=== PATIENT | female | born 2000 | race Caucasian/White ===

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

== ENCOUNTER 2025-04-06 16:30 | Emergency (ER) | payer OTHER ==
--- OUTSIDE RECORDS SUMMARY | 2025-04-06 16:42 | XMS REPORT | Continuity of Care Document ---
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 1{tbl} Take 1 tablet by mouth every 6 (six) hours as needed for Pain (scale 7-10) (Alternate with Ibuprofen) . Indication s: acute pain [facility] ibuprofen 800 mg tablet 08-29 00:00: 00 10-09 00:00 :00 No [id number] 800mg Take 1 tablet by mouth every 8 (eight) hours. [facility] gabapentin 300 mg capsule 08-29 00:00: 00 10-09 00:00 :00 No [id number] 300mg Take 1 capsule by mouth in the morning and 1 capsule at noon and 1 capsule in the evening. [facility] docusate 100 mg capsule 08-29 00:00: 00 10-09 00:00 :00 No [id number] 200mg Take 2 capsules by mouth once daily as needed for Constipati on. [facility] ferrous sulfate 325 mg (65 mg iron) tablet 08-29 00:00: 00 10-09 00:00 :00 No [id number] 325mg Take 1 tablet by mouth in the morning and 1 tablet in the evening. [facility] amoxicillin -pot clavulanate 500 mg (AUGMENTIN) 500-125 mg tablet 08-29 00:00: 09-06 04:59 :00 No [id number] 500mg Take 1 tablet by mouth in the morning and 1 tablet at noon and 1 tablet in the evening. Do all this for 7 days. [facility] gabapentin (NEURONTIN) capsule 300 mg 08-28 18:15: 00 08-29 21:54 :26 No 300mg 300 mg, Oral, TID, First dose (after last modificati on) on Fri08/28/22 at 1215, Until Discontinu ed, Routine [facility] acetaminoph en ADULT (OFIRMEV) injection 1,000 mg 08-28 18:00: 00 08-29 00:40 :00 No 1000mg 1,000 mg, IV Infusion, at 400 mL/hr Administer over 15 Minutes, Q6H, 2 doses, First dose (after last modificati on) on Fri08/28/22 at 1200, Last dose on Fri08/28/22 at 1800, Routine
Indicatio n: Perioperat brittany Patient [facility] gabapentin (NEURONTIN) capsule 300 mg 08-28 18:00: 00 08-28 18:02 :42 No 300mg 300 mg, Oral, TID, First dose on Fri08/28/22 at 1200, Until Discontinu ed, Routine [facility] morpHINE 30 mg/30 mL (fixed dose) [employer] REVIEW SPECIALIST injection 08-28 17:30: 00 08-29 21:54 :26 No Patient Bolus Dose: 1 mg
Lock out Interval: 10 Minutes
Basal Rate: 0 mg/hr
F our Hour Dose Limit: 24 mg
Intr avenous, 30 mL, CONTINUOUS , Starting on Fri08/28/22 at 1130, Until Fri08/29/22 at 1554 [facility] ketorolac (TORADOL) injection 30 mg 08-28 16:00: 00 08-29 09:31 :00 No 30mg 30 mg, Slow IV Push, Q6H FEED, 4 doses, First dose (after last modificati on) on Fri08/28/22 at 1000, Last dose on Fri08/29/22 at 0400, Routine [facility] lactated ringers IV infusion 1,000 mL 08-28 14:15: 00 08-28 15:59 :47 No 1000mL at 125 mL/hr, 1,000 mL, IV Infusion, ONCE, 1 dose, On Fri08/28/22 at 0815, Routine [facility] loperamide (IMODIUM A-D) capsule 4 mg 08-28 13:45: 00 08-28 14:13 :00 No 4mg 4 mg, Oral, ONCE, 1 dose, On Fri08/28/22 at 0745, [facility] ondans[facility] (ZOFRAN (PF)) injection 4 mg 2022-0 08-28 13:30: 00 08-28 14:12 :00 No 4mg 4 mg, Slow IV Push, ONCE, 1 dose, On Fri08/28/22 at 0730, Routine [facility] naloxone (NARCAN) injection 0.4 mg 2022-08-28 13:27: 07 08-29 21:54 :26 No .4mg 0.4 mg, Slow IV Push, PRN - SEE INSTRUCTIO NS, Starting on Fri08/28/22 at 0727, Until Dhara 08/29/22 at 1554, Routine, Analgesia Recovery [facility] nalbuphine (NUBAIN) injection 5 mg 2022-08-28 13:27: 07 08-29 21:54 :26 No 5mg 5 mg, Intravenou s, PRN, 1 dose, Starting on Fri08/28/22 at 0727, Until Dhara 08/29/22 at 1554, Routine, itching [facility] diphenhydrA MINE (BENADRYL) injection 25 mg 2022-0 08-28 13:23: 24 08-29 21:54 :26 No 25mg 25 mg, Slow IV Push, Q6HPRN, Starting on Fri08/28/22 at 0723, Until Dhara 08/29/22 at 1554, Routine, Itching [facility] diphenhydrA MINE (BENADRYL) tablet 25 mg 2022-0 08-28 13:23: 24 08-29 21:54 :26 No 25mg 25 mg, Oral, Q6HPRN, Starting on Fri08/28/22 at 0723, Until Dhara 08/29/22 at 1554, Routine, Sleep, Itching [facility] ondansetron (ZOFRAN (PF)) injection 4 mg 2022-0 08-28 13:23: 24 08-29 21:54 :26 No 4mg 4 mg, Slow IV Push, Q8HPRN, Starting on Fri08/28/22 at 0723, Until Dhara 08/29/22 at 1554, Routine, Nausea and Vomiting (N/V) [facility] bisacodyL (DULCOLAX) suppository 10 mg 08-28 13:23: 23 08-29 21:54 :26 No 10mg 10 mg, Rectal, QDAILYPRN, Starting on Fri08/28/22 at 0723, Until Dhara 08/29/22 at 1554, Routine, Constipati on [facility] simethicone (GAS RELIEF (SIMETHICON E)) chewable tablet 160 mg 08-28 13:23: 23 08-29 21:54 :26 No 160mg 160 mg, Oral, PC+HSPRN, Starting on Fri08/28/22 at 0723, Until Dhara 08/29/22 at 1554, Routine, Gas [facility] docusate (COLACE) capsule 200 mg 08-28 13:23: 23 08-29 21:54 :26 No 200mg 200 mg, Oral, QDAILYPRN, Starting on Fri08/28/22 at 0723, Until Dhara 08/29/22 at 1554, Routine, Constipati on [facility] magnesium hydroxide (MILK OF MAGNESIA) 400 mg/5 mL suspension 30 mL 08-28 13:23: 23 08-29 21:54 :26 No 30mL 30 mL, Oral, QDAILYPRN, Starting on Fri08/28/22 at 0723, Until Dhara 08/29/22 at 1554, Routine, Constipati on [facility] lactated ringers IV infusion 1,000 mL 08-28 13:23: 23 08-28 16:00 :37 No 1000mL at 125 mL/hr, 1,000 mL, IV Infusion, PRN, 1 dose, Starting on Fri08/28/22 at 0723, Until Discontinu ed, Routine [facility] morpHINE PF (DURAMORPH- PF) injection 08-28 13:12: 00 08-28 13:30 :14 No Intravenou s, ONCE INTRA PROCEDURE, Starting on Fri08/28/22 at 0712, Until Fri08/28/22 at 0730, Routine, [facility]-op [facility] azithromyci n (ZITHROMAX) 500 mg in NaCl 0.9% (NS) 250 mL IV piggyback 08-28 13:02: 00 08-28 13:24 :55 No IV Piggyback, CONTINUOUS PRN, Starting on Fri08/28/22 at 0702, Until Fri08/28/22 at 0724, Administer over 60 Minutes, 250 mL, Intra-op [facility] acetaminoph en ADULT (OFIRMEV) injection 08-28 12:55: 00 08-28 13:24 :55 No IV Infusion, Administer over 15 Minutes, ONCE INTRA PROCEDURE, Starting on Fri08/28/22 at 0655, Until Fri08/28/22 at 07, Routine, Intra-op [facility] LR 1000 mL + oxytocin 40 units 40 unit/ 1,000 mL IV Solution 08-28 12:41: 00 08-28 13:24 :55 No IV Infusion, CONTINUOUS PRN, Starting on Fri08/28/22 at 0641, Until Fri08/28/22 at 0724, Routine, Intra-op [facility] midazolam (VERSED) injection 08-28 12:41: 00 08-28 13:24 :55 No IV Push, ONCE INTRA PROCEDURE, Starting on Fri08/28/22 at 0641, Until Fri08/28/22 at 0724, Routine, Intra-op [facility] FENTanyl PF (SUBLIMAZE (PF)) injection 08-28 12:40: 00 08-28 13:24 :55 No Intratheca l, ONCE INTRA PROCEDURE, Starting on Fri08/28/22 at 0640, Until Fri08/28/22 at 0724, Routine, Intra-op [facility] ondansetron (ZOFRAN (PF)) injection 08-28 12:21: 00 08-28 13:24 :55 No Slow IV Push, ONCE INTRA PROCEDURE, Starting on Fri08/28/22 at 0621, Until Fri08/28/22 at 0724, Routine, Intra-op [facility] PHENYLephri ne 1000 mcg/10 mL in 0.9% NaCl syringe 08-28 12:20: 00 08-28 13:24 :55 No Slow IV Push, CONTINUOUS PRN, Starting on Fri08/28/22 at 0620, Until Fri08/28/22 at 0724, Routine, Intra-op [facility] ceFAZolin (ANCEF) 2,000 mg in NaCl 0.9% (NS) 100 mL MINI-BAG 08-28 12:15: 00 08-28 13:32 :07 No 2000mg 2,000 mg, IV Piggyback, Q8H ABX, 3 doses, First dose on Fri08/28/22 at 0615, Last dose on Fri08/28/22 at 2215, Administer over 30 Minutes, 100 mL
Reas on for Anti-Infec tive: Surgical Prophylaxi s
Surgi saad Prophylaxi s: [employer]
Duration of therapy: within 24 hours of surgery [facility] lactated ringers IV infusion 08-28 12:10: 00 08-28 13:24 :55 No IV Infusion, CONTINUOUS PRN, Starting on Fri08/28/22 at 0610, Until Fri08/28/22 at 0724, Routine, Intra-op [facility] lidocaine 2% + epinephrine 1:1000 + fentanyl 50 mcg/mL 08-28 12:08: 00 08-28 13:24 :55 No Epidural, CONTINUOUS PRN, Starting on Fri08/28/22 at 0608, Until Fri08/28/22 at 0724, Routine, Intra-op [facility] acetaminoph en (TYLENOL) tablet 650 mg 08-28 02:27: 25 08-28 13:32 :07 No 650mg 650 mg, Oral, Q6HPRN, Starting on Fri08/27/22 at 2027, Until Fri08/28/22 at 0732, Routine, Pain (scale 4-6) [facility] fentaNYL-ro pivacaine 2 mcg/mL-0.1 % (PF) in NS 200 mL epidural infusion RTU 08-27 22:00: 00 08-28 13:24 :55 No Epidural, CONTINUOUS PRN, Starting on Fri08/27/22 at 1600, Until Discontinu ed, Routine, Intra-op [facility] lidocaine-e pinephrine (XYLOCAINE W/EPINEPHRI NE) 1.5 %-1:200,000 injection 08-27 21:52: 00 08-28 13:24 :55 No Intraderma l, ONCE INTRA PROCEDURE, Starting on Fri08/27/22 at 1552, Until Discontinu ed, Routine, Intra-op [facility] oxytocin (PITOCIN) 30 units in NS 500 mL IV infusion 08-27 10:00: 00 08-28 13:32 :07 No 2mU/min at 2-40 mL/hr, IV Infusion, TITRATE, Starting on Fri08/27/22 at 0400, Until Fri08/28/22 at 0732, JACI [facility] misoprostol (CYTOTEC) quarter-tab let 25 mcg 08-27 06:45: 00 08-27 07:40 :00 No 25ug 25 mcg, Vaginal, ONCE, 1 dose, On Fri08/27/22 at 0045, Routine [facility] butorphanol (STADOL) injection 1 mg 08-27 06:39: 54 08-28 13:32 :07 No 1mg 1 mg, IV Push, Q3HPRN, Starting on Fri08/27/22 at 0039, Until Fri08/28/22 at 0732, Routine, Pain (scale 7-10) [facility] sodium citrate-cit ivanna acid (BICITRA) 500-334 mg/5 mL solution 30 mL 08-27 06:39: 07 08-28 11:30 :00 No 30mL 30 mL, Oral, PRE-PROCED URE ONCE, 1 dose, Starting on Fri08/27/22 at 0039, Until Discontinu ed, Routine, Surgery/Pr ocedure [facility] lactated ringers IV infusion 500 mL 08-27 06:39: 07 08-28 13:32 :07 No 500mL at 999 mL/hr, 500 mL, IV Infusion, PRN - SEE INSTRUCTIO NS, Starting on Fri08/27/22 at 0039, Until Fri08/28/22 at 0732, Routine [facility] D5W-LR IV infusion 1,000 mL 08-27 06:39: 07 08-28 13:32 :07 No 1000mL at 1-125 mL/hr, IV Infusion, TITRATE, Starting on Fri08/27/22 at 003, Until Fri08/28/22 at 0732, Routine [facility] vit/iron fum/folic ac ( 1 + 1 ORAL) 08-27 00:37: 53 Yes Take by mouth. [facility] cephALEXin (KEFLEX) capsule 500 mg 07-16 02:00: 00 07-23 01:59 :00 No 500mg 500 mg, Oral, Q6H ABX, 28 doses, First dose on Fri07/15/22 at 2000, Last dose on Fri07/22/22 at 1400, JACI
Re ason for Anti-Infec tive: Documented Infection< br>Documen muriel Infection Site: Skin / Soft Tissue
Duration of Therapy: 7 days [facility] fluconazole (DIFLUCAN) tablet 200 mg 07-16 01:31: 00 07-16 01:45 :00 No 200mg 200 mg, Oral, ONCE, 1 dose, On Fri07/15/22 at 1945, JACI
Re ason for Anti-Infec tive: Documented Infection< br>Documen muriel Infection Site: Other
O ther site: vaginal
Duration of Therapy: Other (see Comments) [facility] cephALEXin 500 mg capsule 07-16 00:00: 00 07-24 05:59 :00 No [id number] 500mg Take 1 capsule by mouth every 6 (six) hours for 7 days. [facility] vit/iron fum/folic ac ( 1 + 1 ORAL) 07-15 21:29: 54 Yes Take by mouth. [facility] vit/iron fum/folic ac ( 1 + 1 ORAL) 2021-06 16:26: 05 Yes Take by mouth. [facility] azithromyci n 500 mg tablet 2021-06 00:00: 00 06-19 00:00 :00 No [id number] 01 1000mg Take 2 tablets by mouth in the morning. [facility] fluconazole 150 mg tablet 2021-06 00:00: 00 06-01 05:59 :00 No [id number] 150mg Take 1 tablet by mouth once now for 1 dose. [facility] cholecalcif giovany, vitamin D3, (VITAMIN D3 ORAL) 03-04 17:15: 42 03-04 00:00 :00 No Take by mouth. [facility] cholecalcif giovany, vitamin D3, (VITAMIN D3 ORAL) 02-19 11:39: 18 Yes Take by mouth. [facility] iopamidol (ISOVUE 370-500 mL) injection 65 mL 02-15 07:15: 00 02-15 07:15 :00 No [id number] 65mL 65 mL, Intravenou s, ONCE, 1 dose, On Fri02/15/22 at 0215, Routine [facility] vit/iron fum/folic ac ( 1 + 1 ORAL) 02-06 13:04: 58 Yes Take by mouth. [facility] Cetirizine (ZYRTEC) 10 mg capsule 02-06 13:04: 44 02-06 00:00 :00 No Take by mouth. [facility] ondansetron 4 mg disintegrat ing tablet 02-06 00:00: 00 03-04 00:00 :00 No [id number] 4mg Take 1 tablet by mouth every 8 (eight) hours as needed for Nausea and Vomiting (N/V). [facility] pyridoxine, VITAMIN B-6, 25 mg tablet 02-06 00:00: 00 03-04 00:00 :00 No [id number] 25mg Take 1 tablet by mouth in the morning and 1 tablet at noon and 1 tablet in the evening. [facility] doxylamine 25 mg tablet 02-06 00:00: 00 03-04 00:00 :00 No [id number] 25mg Take 1 tablet by mouth at bedtime. [facility] Flexeril 10 mg oral tablet 09-05 20:51: 00 Yes 10 mg, PO, TID, PRN Muscle Spasm, X 10 day, # 30 tab, 0 Refill(s) [place] ibuprofen 600 mg oral tablet 09-05 20:51: 00 Yes 600 mg = 1 tab, PO, Q6H, PRN Pain or Fever, Take with food, X 10 day, # 40 tab, 0 Refill(s) [place] Flexeril 09-05 18:35: 00 No 10 mg, Route: PO, ONCE, Dosing Weight 79.545, kg, Priority: STAT, Start date: 09/05/21 13:35:00 CDT, Stop date: 09/05/21 13:35:00 CDT [place] Tramadol 09-05 18:35: 00 No 50 kg, Priority: STAT, Start date: 09/05/21 13:35:00 CDT, Stop date: 09/05/21 13:35:00 CDT [place] levothyroxi ne 25 mcg tablet - 00:00: 00 02-06 00:00 :00 No [id number] 25ug Take 1 tablet by mouth every morning. Take with water on an empty stomach. Wait at least 15 min before eating or drinking anything else. [facility] Cetirizine (ZYRTEC) 10 mg capsule 2016-06 21:07: 20 Yes Take by mouth. [facility] Cetirizine (ZYRTEC) 10 mg capsule 2016-06 15:07: 20 Yes Take by mouth. [facility] Macrobid 100 mg capsule Take 1 capsule every 12 hours by oral route with meals for 10 days. Macrobid 100 mg capsule Take 1 capsule every 12 hours by oral route with meals for 10 days. No 1capsul e(s) Q12H Macrobid 100 mg capsule Take 1 capsule every 12 hours by oral route with meals for 10 days. [facility] e Immunizations Ordered Immunization Name Filled Immunization Name Date Status Comments Source TDAP 2023-11-28 10:12:[address] [facility] SARS-COV-2 COVID-19 PFIZER VACCINE 2023-11-28 10:12:[address] [facility] TDAP 2023-11-18 14:40:[address] [facility] SARS-COV-2 COVID-19 PFIZER VACCINE 2023-11-18 14:40:[address] [facility] TDAP 2023-08-27 00:00:[address] [facility] SARS-COV-2 COVID-19 PFIZER VACCINE 2023-08-27 00:00:[address] [facility] TDAP 2023-08-22 06:57:[address] [facility] SARS-COV-2 COVID-19 PFIZER VACCINE 2023-08-22 06:57:[address] [facility] TDAP 2023-08-18 12:20:[address] [facility] SARS-COV-2 COVID-19 PFIZER VACCINE 2023-08-18 12:20:[address] [facility] TDAP 2023-07-28 16:40:[address] [facility] SARS-COV-2 COVID-19 PFIZER VACCINE 2023-07-28 16:40:[address] [facility] TDAP 2023-06-23 14:43:[address] [facility] SARS-COV-2 COVID-19 PFIZER VACCINE 2023-06-23 14:43:[address] [facility] TDAP 2023-04-24 20:18:[address] [facility] SARS-COV-2 COVID-19 PFIZER VACCINE 2023-04-24 20:18:[address] [facility] TDAP 2023-04-21 10:23:[address] [facility] SARS-COV-2 COVID-19 PFIZER VACCINE 2023-04-21 10:23:[address] [facility] TDAP 2023-04-17 00:00:[address] [facility] SARS-COV-2 COVID-19 PFIZER VACCINE 2023-04-17 00:00:[address] [facility] TDAP 2023-04-16 00:00:[address] [facility] SARS-COV-2 COVID-19 PFIZER VACCINE 2023-04-16 00:00:[address] [facility] TDAP 2023-04-15 09:40:[address] [facility] SARS-COV-2 COVID-19 PFIZER VACCINE 2023-04-15 09:40:[address] [facility] TDAP 2022-12-27 00:00:[address] [facility] SARS-COV-2 COVID-19 PFIZER VACCINE 2022-12-27 00:00:[address] [facility] TDAP 2022-09-11 00:00:[address] [facility] SARS-COV-2 COVID-19 PFIZER VACCINE 2022-09-11 00:00:[address] [facility] TDAP 2022-07-03 00:00:[address] [facility] TDAP 2022-07-03 00:00:[address] [facility] TDAP 2022-07-03 00:00:[address] [facility] TDAP 2022-07-03 00:00:[address] [facility] TDAP 2022-07-03 00:00:[address] [facility] TDAP 2022-07-03 00:00:[address] [facility] TDAP 2022-07-03 00:00:[address] [facility] TDAP 2022-07-03 00:00:[address] [facility] TDAP 2022-07-03 00:00:[address] [facility] TDAP 2022-07-03 00:00:[address] [facility] TDAP 2022-07-03 00:00:[address] [facility] TDAP 2022-07-03 00:00:[address] [facility] TDAP 2022-07-03 00:00:[address] [facility] TDAP 2022-07-03 00:00:[address] [facility] TDAP 2022-07-03 00:00:[address] [facility] TDAP 2022-07-03 00:00:[address] [facility] TDAP 2022-07-03 00:00:[address] [facility] TDAP 2022-07-03 00:00:[address] [facility] TDAP 2022-07-03 00:00:[address] [facility] TDAP 2022-07-03 00:00:[address] [facility] TDAP 2022-07-03 00:00:[address] [facility] TDAP 2022-07-03 00:00:[address] [facility] TDAP 2022-07-03 00:00:[address] [facility] TDAP 2022-07-03 00:00:[address] [facility] TDAP 2022-07-03 00:00:[address] [facility] TDAP 2022-07-03 00:00:[address] [facility] TDAP 2022-07-03 00:00:[address] [facility] TDAP 2022-07-03 00:00:[address] [facility] TDAP 2022-07-03 00:00:[address] [facility] TDAP 2022-07-03 00:00:[address] [facility] TDAP 2022-07-03 00:00:[address] [facility] TDAP 2022-07-03 00:00:[address] [facility] TDAP 2022-07-03 00:00:[address] [facility] TDAP 2022-07-03 00:00:[address] [facility] COVID-19, mRNA, LNP-S, PF, 30 mcg/0.3 mL dose (Pfizer-BioNTech) COVID-19, mRNA, LNP-S, PF, 30 mcg/0.3 mL dose (Pfizer-BioNTech) 2021-08-10 00:00:00 Completed [facility] SARS-COV-2 COVID-19 PFIZER VACCINE 2021-08-10 00:00:[address] [facility] SARS-COV-2 COVID-19 PFIZER VACCINE 2021-08-10 00:00:[address] [facility] SARS-COV-2 COVID-19 PFIZER VACCINE 2021-08-10 00:00:[address] [facility] SARS-COV-2 COVID-19 PFIZER VACCINE 2021-08-10 00:00:[address] [facility] SARS-COV-2 COVID-19 PFIZER VACCINE 2021-08-10 00:00:[address] [facility] SARS-COV-2 COVID-19 PFIZER VACCINE 2021-08-10 00:00:[address] [facility] SARS-COV-2 COVID-19 PFIZER VACCINE 2021-08-10 00:00:[address] [facility] SARS-COV-2 COVID-19 PFIZER VACCINE 2021-08-10 00:00:[address] [facility] SARS-COV-2 COVID-19 PFIZER VACCINE 2021-08-10 00:00:[address] [facility] SARS-COV-2 COVID-19 PFIZER VACCINE 2021-08-10 00:00:[address] [facility] SARS-COV-2 COVID-19 PFIZER VACCINE 2021-08-10 00:00:[address] [facility] SARS-COV-2 COVID-19 PFIZER VACCINE 2021-08-10 00:00:[address] [facility] SARS-COV-2 COVID-19 PFIZER VACCINE 2021-08-10 00:00:[address] [facility] Vital Signs Vital Name Observation Time Observation Value Comments S ource Systolic blood pressure 2024-09-21 13:50:00 125 mm[Hg] [place] [facility] Diastolic blood pressure 2024-09-21 13:50:00 85 mm[Hg] [place] [facility] Heart rate 2024-09-21 13:50:00 78 [facility] 2024-09-21 13:50:[address] [facility] Respiratory rate 2024-09-21 13:50:00 18 /min [facility] Body height 2024-09-21 13:50:00 165.1 cm [facility] Body weight 2024-09-21 13:50:00 86.501 kg [facility] BMI 2024-09-21 13:50:00 31.73 kg/m2 [facility] Oxygen saturation in Arterial blood by Pulse oximetry 2024-09-21 13:50:00 100 /min [facility] Systolic blood pressure 2024-09-17 15:51:00 120 mm[Hg] [facility] Diastolic blood pressure 2024-09-17 15:51:00 75 mm[Hg] [facility] Heart rate 2024-09-17 15:51:00 80 /min [facility] Body temperature 2024-09-17 15:51:[address] [facility] Respiratory rate 2024-09-17 15:51:00 18 /min [facility] Body height 2024-09-17 15:51:00 165.1 cm [facility] Body weight 2024-09-17 15:51:00 87.544 kg [facility] BMI 2024-09-17 15:51:00 32.12 kg/m2 [facility] Systolic blood pressure 2024-06-07 21:50:00 123 mm[Hg] [facility] Diastolic blood pressure 2024-06-07 21:50:00 79 mm[Hg] [facility] Heart rate 2024-06-07 21:50:00 92 /min [facility] Body temperature 2024-06-07 21:50:[address] [facility] Respiratory rate 2024-06-07 21:50:00 20 /min [facility] Body weight 2024-06-07 21:50:00 82.509 kg [facility] BMI 2024-06-07 21:50:00 31.22 kg/m2 [facility] Oxygen saturation in Arterial blood by Pulse oximetry 2024-06-07 21:50:00 100 /min [facility] Systolic blood pressure 2024-05-12 21:25:00 112 mm[Hg] [facility] Diastolic blood pressure 2024-05-12 21:25:00 73 mm[Hg] [facility] Heart rate 2024-05-12 21:25:00 86 /min [facility] Body temperature 2024-05-12 21:25:[address] [facility] Body height 2024-05-12 21:25:00 162.6 cm [facility] Body weight 2024-05-12 21:25:00 82.101 kg [facility] BMI 2024-05-12 21:25:00 31.07 kg/m2 [facility] Oxygen saturation in Arterial blood by Pulse oximetry 2024-05-12 21:25:00 97 /min [facility] Systolic blood pressure 2023-11-28 15:11:00 120 mm[Hg] [facility] Diastolic blood pressure 2023-11-28 15:11:00 82 mm[Hg] [facility] Heart rate 2023-11-28 15:11:00 81 /min [facility] Body temperature 2023-11-28 15:11:[address] [facility] Respiratory rate 2023-11-28 15:11:00 16 /min [facility] Body height 2023-11-28 15:11:00 162.6 cm [facility] Body weight 2023-11-28 15:11:00 79.379 kg [facility] BMI 2023-11-28 15:11:00 30.04 kg/m2 [facility] Oxygen saturation in Arterial blood by Pulse oximetry 2023-11-28 15:11:00 100 /min [facility] Systolic blood pressure 2023-11-18 20:01:00 108 mm[Hg] [facility] Diastolic blood pressure 2023-11-18 20:01:00 71 mm[Hg] [facility] Heart rate 2023-11-18 20:01:00 86 /min [facility] Body temperature 2023-11-18 20:01:[address] [facility] Respiratory rate 2023-11-18 20:01:00 20 /min [facility] Body height 2023-11-18 20:01:00 162.6 cm [facility] Body weight 2023-11-18 20:01:00 79.788 kg [facility] BMI 2023-11-18 20:01:00 30.19 kg/m2 [facility] Oxygen saturation in Arterial blood by Pulse oximetry 2023-11-18 20:01:00 100 /min [facility] Systolic blood pressure 2023-08-22 15:00:00 96 mm[Hg] [facility] Diastolic blood pressure 2023-08-22 15:00:00 52 mm[Hg] [facility] Heart rate 2023-08-22 15:00:00 79 /min [facility] Respiratory rate 2023-08-22 15:00:00 15 /min [facility] Oxygen saturation in Arterial blood by Pulse oximetry 2023-08-22 15:00:00 98 /min [facility] Body temperature 2023-08-22 12:56:[address] [facility] Body height 2023-08-22 12:56:00 162.6 cm [facility] Body weight 2023-08-22 12:56:00 73.437 kg [facility] BMI 2023-08-22 12:56:00 27.79 kg/m2 [facility] Systolic blood pressure 2023-08-18 18:49:00 119 mm[Hg] [facility] Diastolic blood pressure 2023-08-18 18:49:00 75 mm[Hg] [facility] Heart rate 2023-08-18 18:49:00 71 /min [facility] Body temperature 2023-08-18 18:49:[address] [facility] Respiratory rate 2023-08-18 18:49:00 18 /min [facility] Body weight 2023-08-18 18:49:00 73.437 kg [facility] Oxygen saturation in Arterial blood by Pulse oximetry 2023-08-18 18:49:00 98 /min [facility] Systolic blood pressure 2023-07-28 23:35:53 112 mm[Hg] [facility] Diastolic blood pressure 2023-07-28 23:35:53 68 mm[Hg] [facility] Heart rate 2023-07-28 23:35:53 96 /min [facility] Respiratory rate 2023-07-28 23:35:53 16 /min [facility] Oxygen saturation in Arterial blood by Pulse oximetry 2023-07-28 23:35:53 95 /min [facility] Body temperature 2023-07-28 22:39:[address] [facility] Body height 2023-07-28 22:39:00 162.6 cm [facility] Body weight 2023-07-28 22:39:00 72.576 kg [facility] BMI 2023-07-28 22:39:00 27.46 kg/m2 [facility] Systolic blood pressure 2023-06-23 20:41:00 125 mm[Hg] [facility] Diastolic blood pressure 2023-06-23 20:41:00 77 mm[Hg] [facility] Heart rate 2023-06-23 20:41:00 79 /min [facility] Body temperature 2023-06-23 20:41:[address] [facility] Respiratory rate 2023-06-23 20:41:00 16 /min [facility] Body height 2023-06-23 20:41:00 162.6 cm [facility] Body weight 2023-06-23 20:41:00 77.111 kg [facility] BMI 2023-06-23 20:41:00 29.18 kg/m2 [facility] Oxygen saturation in Arterial blood by Pulse oximetry 2023-06-23 20:41:00 99 /min [facility] Systolic blood pressure 2023-04-25 03:00:00 107 mm[Hg] [facility] Diastolic blood pressure 2023-04-25 03:00:00 73 mm[Hg] [facility] Heart rate 2023-04-25 03:00:00 76 /min [facility] Respiratory rate 2023-04-25 03:00:00 16 /min [facility] Oxygen saturation in Arterial blood by Pulse oximetry 2023-04-25 03:00:00 100 /min [facility] Body temperature 2023-04-25 01:15:[address] [facility] Body height 2023-04-25 01:15:00 162.6 cm [facility] Body weight 2023-04-25 01:15:00 74.844 kg [facility] BMI 2023-04-25 01:15:00 28.32 kg/m2 [facility] Systolic blood pressure 2023-04-21 15:18:00 107 mm[Hg] [facility] Diastolic blood pressure 2023-04-21 15:18:00 66 mm[Hg] [facility] Heart rate 2023-04-21 15:18:00 104 /min [facility] Body temperature 2023-04-21 15:18:[address] [facility] Respiratory rate 2023-04-21 15:18:00 18 /min [facility] Body height 2023-04-21 15:18:00 162.6 cm [facility] Body weight 2023-04-21 15:18:00 74.844 kg [facility] BMI 2023-04-21 15:18:00 28.32 kg/m2 [facility] Oxygen saturation in Arterial blood by Pulse oximetry 2023-04-21 15:18:00 99 /min [facility] Systolic blood pressure 2023-04-15 15:08:00 116 mm[Hg] [place] [facility] Diastolic blood pressure 2023-04-15 15:08:00 72 mm[Hg] [facility] Heart rate 2023-04-15 15:08:00 71 /min [facility] Body temperature 2023-04-15 15:08:[address] [facility] Respiratory rate 2023-04-15 15:08:00 20 /min [facility] Body height 2023-04-15 15:08:00 162.6 cm [facility] Body weight 2023-04-15 15:08:00 74.957 kg [facility] BMI 2023-04-15 15:08:00 28.37 kg/m2 [facility] Oxygen saturation in Arterial blood by Pulse oximetry 2023-04-15 15:08:00 100 /min [facility] Systolic blood pressure 2023-02-18 21:04:00 109 mm[Hg] [facility] Diastolic blood pressure 2023-02-18 21:04:00 73 mm[Hg] [facility] Heart rate 2023-02-18 21:04:00 85 /min [facility] Body temperature 2023-02-18 21:04:[address] [facility] Respiratory rate 2023-02-18 21:04:00 16 /min [facility] Body height 2023-02-18 21:04:00 162.6 cm [facility] Body weight 2023-02-18 21:04:00 74.872 kg [facility] BMI 2023-02-18 21:04:00 28.33 kg/m2 [facility] Oxygen saturation in Arterial blood by Pulse oximetry 2023-02-18 21:04:00 98 /min [facility] Systolic blood pressure 2023-01-29 17:49:00 123 mm[Hg] [facility] Diastolic blood pressure 2023-01-29 17:49:00 74 mm[Hg] [facility] Heart rate 2023-01-29 17:49:00 76 /min [facility] Body temperature 2023-01-29 17:49:[address] [facility] Respiratory rate 2023-01-29 17:49:00 12 /min [facility] Body height 2023-01-29 17:49:00 162.6 cm [facility] Body weight 2023-01-29 17:49:00 73.483 kg [facility] BMI 2023-01-29 17:49:00 27.81 kg/m2 [facility] Oxygen saturation in Arterial blood by Pulse oximetry 2023-01-29 17:49:00 99 /min [facility] Systolic blood pressure 2022-12-26 16:20:00 107 mm[Hg] [facility] Diastolic blood pressure 2022-12-26 16:20:00 57 mm[Hg] [facility] Heart rate 2022-12-26 16:20:00 85 /min [facility] Body temperature 2022-12-26 16:20:[address] [facility] Respiratory rate 2022-12-26 16:20:00 17 /min [facility] Body height 2022-12-26 16:20:00 162.6 cm [facility] Body weight 2022-12-26 16:20:00 72.984 kg [facility] BMI 2022-12-26 16:20:00 27.62 kg/m2 [facility] Oxygen saturation in Arterial blood by Pulse oximetry 2022-12-26 16:20:00 95 /min [facility] Systolic blood pressure 2022-10-09 20:31:00 124 mm[Hg] [facility] Diastolic blood pressure 2022-10-09 20:31:00 78 mm[Hg] [facility] Heart rate 2022-10-09 20:31:00 68 /min [facility] Body temperature 2022-10-09 20:31:[address] [facility] Respiratory rate 2022-10-09 20:31:00 18 /min [facility] Body height 2022-10-09 20:31:00 162.6 cm [facility] Body weight 2022-10-09 20:31:00 74.844 kg [facility] BMI 2022-10-09 20:31:00 28.32 kg/m2 [facility] Systolic blood pressure 2022-09-24 20:48:00 119 mm[Hg] [facility] Diastolic blood pressure 2022-09-24 20:48:00 75 mm[Hg] [facility] Heart rate 2022-09-24 20:48:00 68 /min [facility] Body temperature 2022-09-24 20:48:[address] [facility] Respiratory rate 2022-09-24 20:48:00 18 /min [facility] Body height 2022-09-24 20:48:00 162.6 cm [facility] Body weight 2022-09-24 20:48:00 76.204 kg [facility] BMI 2022-09-24 20:48:00 28.84 kg/m2 [facility] Body temperature 2022-09-04 20:31:[address] [facility] Respiratory rate 2022-09-04 20:31:00 18 /min [facility] Oxygen saturation in Arterial blood by Pulse oximetry 2022-09-04 20:31:00 100 /min [facility] Systolic blood pressure 2022-09-04 17:19:00 127 mm[Hg] [facility] Diastolic blood pressure 2022-09-04 17:19:00 79 mm[Hg] [facility] Heart rate 2022-09-04 09:34:00 65 /min [facility] Body height 2022-08-31 03:07:00 162.6 cm [facility] Body weight 2022-08-31 03:07:00 84.913 kg [facility] BMI 2022-08-31 03:07:00 32.13 kg/m2 [facility] Systolic blood pressure 2022-08-29 18:00:00 114 mm[Hg] [facility] Diastolic blood pressure 2022-08-29 18:00:00 63 mm[Hg] [facility] Body temperature 2022-08-29 18:00:[address] [facility] Heart rate 2022-08-29 13:13:00 81 /min [facility] Respiratory rate 2022-08-29 13:13:00 16 /min [facility] Oxygen saturation in Arterial blood by Pulse oximetry 2022-08-29 13:13:00 96 /min [facility] Body height 2022-08-27 06:57:00 162.6 cm [facility] Body weight 2022-08-27 06:57:00 85.367 kg 188.2lb [facility] BMI 2022-08-27 06:57:00 32.29 kg/m2 [facility] Systolic blood pressure 2022-08-28 14:20:00 112 mm[Hg] [facility] Diastolic blood pressure 2022-08-28 14:20:00 57 mm[Hg] [facility] Heart rate 2022-08-28 14:20:00 94 /min [facility] Respiratory rate 2022-08-28 14:20:00 18 /min [facility] Oxygen saturation in Arterial blood by Pulse oximetry 2022-08-28 14:20:00 97 /min [facility] Body temperature 2022-08-28 13:45:[address] [facility] Body height 2022-08-27 06:57:00 162.6 cm [facility] Body weight 2022-08-27 06:57:00 85.367 kg 188.2lb [facility] BMI 2022-08-27 06:57:00 32.29 kg/m2 [facility] Respiratory rate 2022-08-28 13:09:00 27 /min [facility] Systolic blood pressure 2022-08-21 21:16:00 129 mm[Hg] [facility] Diastolic blood pressure 2022-08-21 21:16:00 83 mm[Hg] [facility] Heart rate 2022-08-21 21:16:00 68 /min [facility] Body temperature 2022-08-21 21:16:[address] [facility] Respiratory rate 2022-08-21 21:16:00 16 /min [facility] Body height 2022-08-21 21:16:00 162.6 cm [facility] Body weight 2022-08-21 21:16:00 84.369 kg [facility] BMI 2022-08-21 21:16:00 31.93 kg/m2 [facility] Systolic blood pressure 2022-08-14 20:54:00 115 mm[Hg] [facility] Diastolic blood pressure 2022-08-14 20:54:00 74 mm[Hg] [facility] Heart rate 2022-08-14 20:54:00 89 /min [facility] Body temperature 2022-08-14 20:54:[address] [facility] Respiratory rate 2022-08-14 20:54:00 17 /min [facility] Body height 2022-08-14 20:54:00 162.6 cm [facility] Body weight 2022-08-14 20:54:00 84.823 kg [facility] BMI 2022-08-14 20:54:00 32.10 kg/m2 [facility] Systolic blood pressure 2022-08-07 21:46:00 110 mm[Hg] [facility] Diastolic blood pressure 2022-08-07 21:46:00 72 mm[Hg] [facility] Heart rate 2022-08-07 21:46:00 62 /min [facility] Body temperature 2022-08-07 21:46:[address] [facility] Respiratory rate 2022-08-07 21:46:00 18 /min [facility] Body height 2022-08-07 21:46:00 162.6 cm [facility] Body weight 2022-08-07 21:46:00 81.92 kg [facility] BMI 2022-08-07 21:46:00 31.00 kg/m2 [facility] Systolic blood pressure 2022-07-31 21:31:00 116 mm[Hg] [facility] Diastolic blood pressure 2022-07-31 21:31:00 74 mm[Hg] [facility] Heart rate 2022-07-31 21:31:00 79 /min [facility] Body temperature 2022-07-31 21:31:[address] [facility] Respiratory rate 2022-07-31 21:31:00 16 /min [facility] Body height 2022-07-31 21:31:00 162.6 cm [facility] Body weight 2022-07-31 21:31:00 83.28 kg [facility] BMI 2022-07-31 21:31:00 31.51 kg/m2 [facility] Systolic blood pressure 2022-07-17 20:15:00 109 mm[Hg] [facility] Diastolic blood pressure 2022-07-17 20:15:00 69 mm[Hg] [facility] Heart rate 2022-07-17 20:15:00 97 /min [facility] Body temperature 2022-07-17 20:15:[address] [facility] Respiratory rate 2022-07-17 20:15:00 18 /min [facility] Body height 2022-07-17 20:15:00 162.6 cm [facility] Body weight 2022-07-17 20:15:00 81.194 kg [facility] BMI 2022-07-17 20:15:00 30.73 kg/m2 [facility] Systolic blood pressure 2022-07-16 02:00:00 106 mm[Hg] [facility] Diastolic blood pressure 2022-07-16 02:00:00 65 mm[Hg] [facility] Heart rate 2022-07-16 02:00:00 83 /min [facility] Oxygen saturation in Arterial blood by Pulse oximetry 2022-07-16 02:00:00 100 /min [facility] Body height 2022-07-16 00:00:00 162.6 cm [facility] Body weight 2022-07-16 00:00:00 80.559 kg [facility] BMI 2022-07-16 00:00:00 30.48 kg/m2 [facility] Body temperature 2022-07-15 23:30:[address] [facility] Respiratory rate 2022-07-15 23:30:00 18 /min [facility] Systolic blood pressure 2022-07-03 17:25:00 119 mm[Hg] [facility] Diastolic blood pressure 2022-07-03 17:25:00 71 mm[Hg] [facility] Heart rate 2022-07-03 17:25:00 98 /min [facility] Body temperature 2022-07-03 17:25:[address] [facility] Respiratory rate 2022-07-03 17:25:00 18 /min [facility] Body height 2022-07-03 17:25:00 162.6 cm [facility] Body weight 2022-07-03 17:25:00 78.926 kg [facility] BMI 2022-07-03 17:25:00 29.87 kg/m2 [facility] Systolic blood pressure 2022-06-19 16:14:00 117 mm[Hg] [facility] Diastolic blood pressure 2022-06-19 16:14:00 74 mm[Hg] [facility] Heart rate 2022-06-19 16:14:00 97 /min [facility] Body temperature 2022-06-19 16:14:[address] [facility] Respiratory rate 2022-06-19 16:14:00 16 /min [facility] Body height 2022-06-19 16:14:00 162.6 cm [facility] Body weight 2022-06-19 16:14:00 77.928 kg [facility] BMI 2022-06-19 16:14:00 29.49 kg/m2 [facility] Oxygen saturation in Arterial blood by Pulse oximetry 2022-06-19 16:14:00 99 /min [facility] Heart rate 2022-06-04 21:50:00 78 /min [facility] Oxygen saturation in Arterial blood by Pulse oximetry 2022-06-04 21:50:00 99 /min [facility] Systolic blood pressure 2022-06-04 20:47:00 132 mm[Hg] [facility] Diastolic blood pressure 2022-06-04 20:47:00 69 mm[Hg] [facility] Body temperature 2022-06-04 20:42:[address] [facility] Respiratory rate 2022-06-04 20:42:00 20 /min [facility] Body weight 2022-06-04 20:27:00 76.204 kg [facility] BMI 2022-06-04 20:27:00 28.84 kg/m2 [facility] Systolic blood pressure 2022-05-29 19:11:00 103 mm[Hg] [facility] Diastolic blood pressure 2022-05-29 19:11:00 68 mm[Hg] [facility] Heart rate 2022-05-29 19:11:00 86 /min [facility] Body temperature 2022-05-29 19:11:[address] [facility] Respiratory rate 2022-05-29 19:11:00 18 /min [facility] Body height 2022-05-29 19:11:00 162.6 cm [facility] Body weight 2022-05-29 19:11:00 75.751 kg [facility] BMI 2022-05-29 19:11:00 28.67 kg/m2 [facility] Systolic blood pressure 2022-05-22 20:46:00 116 mm[Hg] [facility] Diastolic blood pressure 2022-05-22 20:46:00 64 mm[Hg] [facility] Heart rate 2022-05-22 20:46:00 72 /min [facility] Body temperature 2022-05-22 20:46:[address] [facility] Respiratory rate 2022-05-22 20:46:00 16 /min [facility] Body height 2022-05-22 20:46:00 162.6 cm [facility] Body weight 2022-05-22 20:46:00 74.617 kg [facility] BMI 2022-05-22 20:46:00 28.24 kg/m2 [facility] Oxygen saturation in Arterial blood by Pulse oximetry 2022-05-22 20:46:00 99 /min [facility] Systolic blood pressure 2022-04-03 16:11:00 121 mm[Hg] [facility] Diastolic blood pressure 2022-04-03 16:11:00 75 mm[Hg] [facility] Heart rate 2022-04-03 16:11:00 109 /min [facility] Body temperature 2022-04-03 16:11:[address] [facility] Respiratory rate 2022-04-03 16:11:00 16 /min [facility] Body height 2022-04-03 16:11:00 162.6 cm [facility] Body weight 2022-04-03 16:11:00 71.351 kg [facility] BMI 2022-04-03 16:11:00 27.00 kg/m2 [facility] Oxygen saturation in Arterial blood by Pulse oximetry 2022-04-03 16:11:00 100 /min [facility] Systolic blood pressure 2022-03-04 16:09:00 103 mm[Hg] [facility] Diastolic blood pressure 2022-03-04 16:09:00 68 mm[Hg] [facility] Heart rate 2022-03-04 16:09:00 93 /min [facility] Body temperature 2022-03-04 16:09:[address] [facility] Respiratory rate 2022-03-04 16:09:00 18 /min [facility] Body height 2022-03-04 16:09:00 162.6 cm [facility] Body weight 2022-03-04 16:09:00 67.586 kg [facility] BMI 2022-03-04 16:09:00 25.58 kg/m2 [facility] Systolic blood pressure 2022-02-19 16:29:00 120 mm[Hg] [facility] Diastolic blood pressure 2022-02-19 16:29:00 73 mm[Hg] [facility] Heart rate 2022-02-19 16:29:00 78 /min [facility] Body temperature 2022-02-19 16:29:[address] [facility] Respiratory rate 2022-02-19 16:29:00 18 /min [facility] Body height 2022-02-19 16:29:00 165.1 cm [facility] Body weight 2022-02-19 16:29:00 67.586 kg [facility] BMI 2022-02-19 16:29:00 24.79 kg/m2 [facility] Systolic blood pressure 2022-02-15 06:10:00 125 mm[Hg] [facility] Diastolic blood pressure 2022-02-15 06:10:00 64 mm[Hg] [facility] Heart rate 2022-02-15 06:10:00 93 /min [facility] Respiratory rate 2022-02-15 06:10:00 24 /min [facility] Oxygen saturation in Arterial blood by Pulse oximetry 2022-02-15 06:10:00 99 /min [facility] Body temperature 2022-02-15 05:09:[address] [facility] Body height 2022-02-15 05:09:00 165.1 cm [facility] Body weight 2022-02-15 05:09:00 65.772 kg [facility] BMI 2022-02-15 05:09:00 24.13 kg/m2 [facility] Systolic blood pressure 2022-02-05 20:04:00 120 mm[Hg] [facility] Diastolic blood pressure 2022-02-05 20:04:00 75 mm[Hg] [facility] Heart rate 2022-02-05 20:04:00 97 /min [facility] Body temperature 2022-02-05 20:04:[address] [facility] Respiratory rate 2022-02-05 20:04:00 18 /min [facility] Body height 2022-02-05 20:04:00 162.6 cm [facility] Body weight 2022-02-05 20:04:00 67.586 kg [facility] BMI 2022-02-05 20:04:00 25.58 kg/m2 [facility] BP Diastolic 2021-11-02 00:00:00 69 mm[Hg] [facility] Height 2021-11-02 00:00:00 65 [in_i] [facility] BMI (Body Mass Index) 2021-11-02 00:00:00 28 kg/m2 [facility] BP Systolic 2021-11-02 00:00:00 103 mm[Hg] [facility] Body Weight 2021-11-02 00:00:00 168.4 [lb_av] [facility] Height 2021-10-25 00:00:00 65 [in_i] [facility] BMI (Body Mass Index) 2021-10-25 00:00:00 28.4 kg/m2 [facility] ly Practice BP Systolic 2021-10-25 00:00:00 104 mm[Hg] [facility] Body Weight 2021-10-25 00:00:00 170.4 [lb_av] [facility] BP Diastolic 2021-10-25 00:00:00 72 mm[Hg] [facility] BP Diastolic 2021-08-10 00:00:00 81 mm[Hg] [facility] Height 2021-08-10 00:00:00 65 [in_i] [facility] BMI (Body Mass Index) 2021-08-10 00:00:00 28.5 kg/m2 [facility] BP Systolic 2021-08-10 00:00:00 125 mm[Hg] [facility] Body Weight 2021-08-10 00:00:00 171 [lb_av] [facility] Systolic blood pressure 2019-02-12 23:17:00 119 mm[Hg] [facility] Diastolic blood pressure 2019-02-12 23:17:00 80 mm[Hg] [facility] Heart rate 2019-02-12 23:17:00 80 /min [facility] Body temperature 2019-02-12 23:17:[address] [facility] Respiratory rate 2019-02-12 23:17:00 16 /min [facility] Body height 2019-02-12 23:17:00 165.1 cm [facility] Body weight 2019-02-12 23:17:00 76.295 kg [facility] BMI 2019-02-12 23:17:00 27.99 kg/m2 [facility] Oxygen saturation in Arterial blood by Pulse oximetry 2019-02-12 23:17:00 98 /min [facility] Systolic blood pressure 2019-02-12 23:17:00 119 mm[Hg] [facility] Diastolic blood pressure 2019-02-12 23:17:00 80 mm[Hg] [facility] Heart rate 2019-02-12 23:17:00 80 /min [facility] Body temperature 2019-02-12 23:17:[address] [facility] Respiratory rate 2019-02-12 23:17:00 16 /min [facility] Body height 2019-02-12 23:17:00 165.1 cm [facility] Body weight 2019-02-12 23:17:00 76.295 kg [facility] BMI 2019-02-12 23:17:00 27.99 kg/m2 [facility] Oxygen saturation in Arterial blood by Pulse oximetry 2019-02-12 23:17:00 98 /min [facility] Systolic blood pressure 2022-08-29 18:00:00 114 mm[Hg] [facility] Diastolic blood pressure 2022-08-29 18:00:00 63 mm[Hg] [facility] Body temperature 2022-08-29 18:00:[address] [facility] Heart rate 2022-08-29 13:13:00 81 /min [facility] Respiratory rate 2022-08-29 13:13:00 16 /min [facility] Oxygen saturation in Arterial blood by Pulse oximetry 2022-08-29 13:13:00 96 /min [facility] Body height 2022-08-27 06:57:00 162.6 cm [facility] Body weight 2022-08-27 06:57:00 85.367 kg 188.2lb [facility] BMI 2022-08-27 06:57:00 32.29 kg/m2 [facility] Heart Rate 2021-09-05 21:15:00 [facility] [place] Respitory Rate 2021-09-05 21:15:00 [facility] [place] Systolic (mm Hg) 2021-09-05 21:15:00 [facility] [place] Diastolic (mm Hg) 2021-09-05 21:15:00 [facility] [place] Height 2021-09-05 18:04:00 162.56 cm [facility] [place] BMI Calculated 2021-09-05 18:04:00 [facility] Weight 2021-09-05 18:04:00 [facility] Systolic (mm Hg) 2021-09-05 18:04:00 [facility] Diastolic (mm Hg) 2021-09-05 18:04:00 [facility] Heart Rate 2021-09-05 18:04:00 [facility] Respitory Rate 2021-09-05 18:04:00 [facility] Temperature Oral (F) 2021-09-05 18:04:00 98.4 F [facility] Procedures Procedure Date / Time Performed Performing Clinician Source POCT URINALYSIS W/O SPECIFIC GRAVITY 2024-09-21 14:03:[address] [facility] POCT URINALYSIS 2024-05-12 21:31:00 Sarah Rosario [facility] POCT TEST 2024-05-12 00:00:[address] [facility] ED SPLINT APPLICATION 2023-11-28 16:04:[address] [facility] POCT TEST 2023-11-28 15:34:[address] [facility] COVID-19 (ID NOW RAPID TESTING) 2023-08-22 13:48:[address] [facility] COMP. METABOLIC PANEL (35020) 2023-08-22 13:47:[address] [facility] CBC WITH DIFF 2023-08-22 13:47:[address] [facility] RAPID INFLUENZA A/B 2023-08-22 13:47:[address] [facility] CONSENT/REFUSAL FOR DIAGNOSIS AND TREATMENT 2023-08-22 12:49:12 Doctor Unassigned, Hershey [facility] XR CHEST 2 VW 2023-07-28 23:55:53 [facility]X+NA+K+GLU+CA2+ 2023-07-28 23:37:[address] [facility] POCT TEST 2023-07-28 23:21:[address] [facility] URINALYSIS 2023-07-28 23:19:00 Marlin Stephenson [facility] COMP. METABOLIC PANEL (70377) 2023-07-28 23:18:[address] [facility] CBC WITH DIFF 2023-07-28 23:18:00 Sachin [facility] RAPID STREP SCREEN FOR GROUP A 2023-07-28 22:57:[address] [facility] RAPID INFLUENZA A/B 2023-07-28 22:57:[address] [facility] COVID-19 (ID NOW RAPID TESTING) 2023-07-28 22:57:[address] [facility] CONSENT/REFUSAL FOR DIAGNOSIS AND TREATMENT 2023-07-28 22:29:33 Doctor Unassigned, [facility]hey [facility] ASSIGNMENT OF BENEFITS 2023-06-23 22:15:16 Docto r Unassigned, Hershey [facility] POCT TEST 2023-06-23 20:54:[address] [facility] URINALYSIS 2023-06-23 20:53:00 Netta Velazco [facility] CONSENT/REFUSAL FOR DIAGNOSIS AND TREATMENT 2023-06-23 20:32:45 Doctor Unassigned, [facility]hey [facility] URINALYSIS 2023-04-25 01:54:00 Montanez, Napoleon [facility] COMP. METABOLIC PANEL ([id number]) 2023-04-25 01:50:[address] [facility] CBC WITH DIFF 2023-04-25 01:50:00 Napoleon Montanez [facility] RAPID INFLUENZA A/B 2023-04-25 01:50:00 Aishwarya [facility] POCT TEST 2023-04-25 01:50:00 Aishwarya [facility] COVID-19 (ID NOW RAPID TESTING) 2023-04-25 01:50:00 Aishwarya [facility] NOTICE OF PRIVACY PRACTICES 2023-04-25 01:07:36 Doctor Unassigned, [facility]hey [facility] CONSENT/REFUSAL FOR DIAGNOSIS AND TREATMENT 2023-04-25 01:06:22 Doctor Unassigned, [facility]hey [facility] CONSENT/REFUSAL FOR DIAGNOSIS AND TREATMENT 2023-04-21 15:10:29 Doctor Unassigned, Hershey [facility] POCT TEST 2023-02-18 21:14:[address] [facility] ASSIGNMENT OF BENEFITS 2023-02-18 20:55:31 Docto r Unassigned, [facility]hey [facility] POCT URINALYSIS 2023-01-29 17:50:00 Phyllis Ramos Un [facility] HCV ANTIBODY 2022-12-26 17:03:00 Sarah Rosario [facility] HSV 1 AND 2 GLYCOPROTEIN G IGG 2022-12-26 17:03:[address] [facility] SYPHILIS IGG/IGM 2022-12-26 17:03:00 [facility] 2022-12-26 17:02:[address] [facility] CONSENT FOR CONTRACEPTION 2022-10-09 05:01:00 Do ctor Unassigned, [facility] POCT TEST 2022-10-09 00:00:[address] [facility] LIPASE 2022-09-04 09:33:00 [facility] BASIC METABOLIC PANEL (NA, K, CL, CO2, GLUCOSE, BUN, CREATININE, CA) 2022-09-04 09:33:00 Rebecca [facility] CBC WITH DIFF 2022-09-04 09:33:00 [facility] D-DIMER 2022-09-04 09:33:00 Rebecca [facility] PROCALCITONIN 2022-09-04 09:33:[address] [facility] [address] ABDOMEN PELVIS W CONTRAST 2022-09-02 01:30:22 Adum, Prema Valdez [facility] BLOOD CULTURE SCREEN 2022-09-01 23:23:00 Adum, Prema Valdez [facility] BASIC METABOLIC PANEL (NA, K, CL, CO2, GLUCOSE, BUN, CREATININE, CA) 2022-09-01 23:23:00 Adum, Prema Valdez [facility] CBC WITH DIFF 2022-09-01 23:23:00 Adum, Pre[facility] LACTIC ACID WHOLE BLOOD 2022-09-01 23:23:00 Adum, Ivelisse Valdez [facility] XR CHEST 1 VW 2022-09-01 23:09:47 [facility] 2022-08-31 08:04:00 Adum, Prema Valdez [facility] URINE CULTURE 2022-08-31 07:33:00 Adum, Prema Rosa [facility] BLOOD CULTURE SCREEN 2022-08-31 07:02:00 Adum, Prema Valdez [facility] COVID-19 (ID NOW RAPID TESTING) 2022-08-31 04:41:00 Adum, Prema Valdez [facility] LAB ONLY COVID INTERPRETATION 2022-08-31 04:41:00 Adum, Prema Valdez [facility] SGOT (ASPARTATE AMINO TRANSFER) 2022-08-31 03:47:00 Adum, Prema Valdez [facility] CREATININE 2022-08-31 03:47:00 Adum, Prema L [facility] ALANINE AMINO TRANSFERASE(SGPT 2022-08-31 03:47:00 Adum, Prema Valdez [facility] LACTATE DEHYDROGENASE 2022-08-31 03:47:00 Adum, Prema Valdez [facility] URIC ACID 2022-08-31 03:47:00 Adum, Prema Valdez [facility] CBC WITH DIFF 2022-08-31 03:47:00 Adum, Prema Rosa [facility] CONSENT/REFUSAL FOR DIAGNOSIS AND TREATMENT 2022-08-31 02:53:33 Doctor Unassigned, [facility]hey [facility] CONSENT/REFUSAL FOR DIAGNOSIS AND TREATMENT 2022-08-31 02:53:33 Doctor Unassigned, [facility]hey [facility] HOSPITAL ADMISSION 2022-08-30 06:01:00 Doctor Un assigned, [facility]hey [facility] CREATININE 2022-08-29 10:22:00 Randy Osei [facility] CBC WITH DIFF 2022-08-29 10:22:00 Adum, Prema [facility] CBC WITH DIFF 2022-08-29 10:22:00 Adum, Prema [facility] CREATININE 2022-08-29 10:22:00 Randy Osei [facility] CREATININE 2022-08-29 10:22:00 Randy Osei [facility] CBC WITH DIFF 2022-08-29 10:22:00 Adum, Prema Rosa [facility] SECTION 2022-08-28 11:53:00 Adum, [facility]ma [facility] SGOT (ASPARTATE AMINO TRANSFER) 2022-08-28 09:36:00 Adum, Prema Valdez [facility] CREATININE 2022-08-28 09:36:00 Adum, Prema Owens [facility] ALANINE AMINO TRANSFERASE(SGPT 2022-08-28 09:36:00 Adum, Prema Valdez [facility] LACTATE DEHYDROGENASE 2022-08-28 09:36:00 Adum, Prema Valdez [facility] URIC ACID 2022-08-28 09:36:00 Adum, Prema José Miguel [facility] CBC WITH DIFF 2022-08-28 09:36:00 Adum, Premadyana Rosa [facility] URINALYSIS 2022-08-28 09:36:00 Adum, Prema José Miguel [facility] PROTEIN CREAT RATIO URINE RANDOM 2022-08-28 09:36:00 Adum, Prema José Miguel [facility] CBC WITH DIFF 2022-08-28 09:36:00 Adum, Premadyana Rosa [facility] URIC ACID 2022-08-28 09:36:00 Adum, Prema L [facility] CREATININE 2022-08-28 09:36:00 Adum, Prema José Miguel [facility] SGOT (ASPARTATE AMINO TRANSFER) 2022-08-28 09:36:00 Adum, Prema José Miguel [facility] ALANINE AMINO TRANSFERASE(SGPT 2022-08-28 09:36:00 Adum, Prema José Miguel [facility] LACTATE DEHYDROGENASE 2022-08-28 09:36:00 Adum, Prema José Miguel [facility] PROTEIN CREAT RATIO URINE RANDOM 2022-08-28 09:36:00 Adum, Prema José Miguel [facility] URINALYSIS 2022-08-28 09:36:00 Adum, Prema José Miguel [facility] SGOT (ASPARTATE AMINO TRANSFER) 2022-08-28 09:36:00 Adum, Prema José Miguel [facility] CREATININE 2022-08-28 09:36:00 Adum, Prmea José Miguel [facility] ALANINE AMINO TRANSFERASE(SGPT 2022-08-28 09:36:00 Adum, Prema José Miguel [facility] LACTATE DEHYDROGENASE 2022-08-28 09:36:00 Adum, Prema José Miguel [facility] URIC ACID 2022-08-28 09:36:00 Adum, Prema L [facility] CBC WITH DIFF 2022-08-28 09:36:00 Adum, Prema Rosa [facility] URINALYSIS 2022-08-28 09:36:00 Adum, Prema Owens [facility] PROTEIN CREAT RATIO URINE RANDOM 2022-08-28 09:36:00 Adum, Prema Valdez [facility] CENTRAL NEURAXIAL BLOCK 2022-08-27 21:30:[address] [facility] CENTRAL NEURAXIAL BLOCK 2022-08-27 21:30:[address] [facility] CBC WITH DIFF 2022-08-27 07:32:00 Adum, Prema Rosa [facility] HEPATITIS B SURFACE ANTIGEN 2022-08-27 07:32:00 Adum, Prema Valdez [facility] ADC OR SHIVANI ONLY - RPR 2022-08-27 07:32:00 Adum, Kobi Valdez [facility] HIV 1/2 AG-AB WITH REFLEX 2022-08-27 07:32:00 Adum, Kobi Valdez [facility] URINE DRUG (LCMSMS) - COMPREHENSIVE DRUG PANEL 2022-08-27 07:32:00 Adum, Prema Valdez [facility] HEPATITIS B SURFACE ANTIGEN 2022-08-27 07:32:00 Adum, Prema Valdez [facility] ADC OR SHIVANI ONLY - RPR 2022-08-27 07:32:00 Adum, Kobi Valdez [facility] CBC WITH DIFF 2022-08-27 07:32:00 Adum, Prema Rosa [facility] HIV 1/2 AG-AB WITH REFLEX 2022-08-27 07:32:00 Adum, Kobi Valdez [facility] CBC WITH DIFF 2022-08-27 07:32:00 Adum, Prema Rosa [facility] HEPATITIS B SURFACE ANTIGEN 2022-08-27 07:32:00 Adum, Prema Valdez [facility] ADC OR SHIVANI ONLY - RPR 2022-08-27 07:32:00 Adum, Kobi Valdez [facility] HIV 1/2 AG-AB WITH REFLEX 2022-08-27 07:32:00 Adum, Kobi Valdez [facility] HB ABO GROUPING 2022-08-27 07:30:00 Adum, Prema Valdez [facility] HB ABO GROUPING 2022-08-27 07:30:00 Adum, Prema Valdez [facility] HB ABO GROUPING 2022-08-27 07:30:00 Adum, Prema Valdez [facility] HOSPITAL ADMISSION 2022-08-27 06:01:00 Doctor Un assigned, [facility]hey [facility] AUTHORIZATION FOR RELEASE OF PHI 2022-08-27 06:01:00 Doctor Unassigned, [facility]hey [facility] PATIENT FINANCIAL POLICY 2022-08-21 20:51:16 Doctor Unassigned, [facility] PATIENT FINANCIAL POLICY 2022-08-21 20:51:16 Doctor Unassigned, Hershey [facility] POCT URINALYSIS W/O SPECIFIC GRAVITY 2022-08-21 00:00:00 Adum, Prema Valdez [facility] POCT URINALYSIS W/O SPECIFIC GRAVITY 2022-08-21 00:00:00 Adum, Prema Valdez [facility] POCT URINALYSIS W/O SPECIFIC GRAVITY 2022-08-14 00:00:00 Adum, Prema Valdez [facility] POCT URINALYSIS W/O SPECIFIC GRAVITY 2022-08-14 00:00:00 Adum, Prema Valdez [facility] CBC WITH DIFF 2022-08-12 18:14:00 Adum, Prema Valdez [facility] GC & CHLAMYDIA AMPLIFIED ASSAY 2022-08-07 21:56:00 Adum, Prema Valdez [facility] GROUP B STREPTOCOCCUS BY PCR 2022-08-07 21:56:00 Adum, Prema Valdez [facility] DSU PRE-OP 2022-08-07 06:01:00 Doctor Unass igned, [facility] DSU PRE-OP 2022-08-07 06:01:00 Doctor Unass igned, [facility]hey [facility] POCT URINALYSIS W/O SPECIFIC GRAVITY 2022-08-07 00:00:00 Adum, Prema Valdez [facility] POCT URINALYSIS W/O SPECIFIC GRAVITY 2022-08-07 00:00:00 Adum, Prema Valdez [facility] POCT URINALYSIS W/O SPECIFIC GRAVITY 2022-07-31 00:00:00 Adum, Prema Valdez [facility] POCT URINALYSIS W/O SPECIFIC GRAVITY 2022-07-31 00:00:00 Adum, Prema Valdez [facility] POCT URINALYSIS W/O SPECIFIC GRAVITY 2022-07-17 00:00:00 Adum, Prema Valdez [facility] POCT URINALYSIS W/O SPECIFIC GRAVITY 2022-07-17 00:00:00 Adum, Prema Valdez [facility] NON-STRESS TEST 2022-07-16 23:39:[address] [facility] ADC CLC OR LCC ONLY - WET PREP 2022-07-16 00:31:[address] [facility] ADC CLC OR LCC ONLY - WET PREP 2022-07-16 00:31:[address] [facility] GROUP B STREPTOCOCCUS BY PCR 2022-07-16 00:31:[address] [facility] GC & CHLAMYDIA AMPLIFIED ASSAY 2022-07-16 00:31:[address] [facility] ASSIGNMENT OF BENEFITS 2022-07-15 23:21:16 Docto r Unassigned, [facility]hey [facility] ASSIGNMENT OF BENEFITS 2022-07-15 23:21:16 Docto r Unassigned, [facility]hey [facility] CONSENT/REFUSAL FOR DIAGNOSIS AND TREATMENT 2022-07-15 23:18:05 Doctor Unassigned, [facility]hey [facility] CONSENT/REFUSAL FOR DIAGNOSIS AND TREATMENT 2022-07-15 23:18:05 Doctor Unassigned, [facility]hey [facility] AUTHORIZATION FOR RELEASE OF PHI 2022-07-15 06:01:00 Doctor Unassigned, [facility]hey [facility] L&D VISIT (NON-DELIVERED) 2022-07-15 06:01:00 Do ctor Unassigned, [facility]hey [facility] AUTHORIZATION FOR RELEASE OF PHI 2022-07-15 06:01:00 Doctor Unassigned, [facility]hey [facility] L&D VISIT (NON-DELIVERED) 2022-07-15 06:01:00 Do ctor Unassigned, [facility]hey [facility] AUTHORIZATION FOR RELEASE OF PHI 2022-07-15 06:01:00 Doctor Unassigned, Hershey [facility] L&D VISIT (NON-DELIVERED) 2022-07-15 06:01:00 Do ctor Unassigned, [facility]hey [facility] TDAP VACCINE, >11 YRS, IM 2022-07-03 17:26:33 Adum, Kobi Valdez [facility] TDAP VACCINE, >11 YRS, IM 2022-07-03 17:26:33 Adum, Kobi Valdez [facility] POCT URINALYSIS W/O SPECIFIC GRAVITY 2022-07-03 17:26:00 Adum, Prema Valdez [facility] POCT URINALYSIS W/O SPECIFIC GRAVITY 2022-07-03 17:26:00 Adum, Prema Valdez [facility] URINE DRUG (IMMUNOASSAY) - COMPREHENSIVE DRUG SCREEN 2022-06-19 17:02:00 Adum, Prema Valdez [facility] GC & CHLAMYDIA AMPLIFIED ASSAY 2022-06-19 16:18:00 Adum, Prema Valdez [facility] TRICHOMONAS AMPLIFIED ASSAY 2022-06-19 16:18:00 Adum, Prema Valdez [facility] POCT URINALYSIS W/O SPECIFIC GRAVITY 2022-06-19 00:00:00 Adum, Prema Valdez [facility] POCT URINALYSIS W/O SPECIFIC GRAVITY 2022-06-19 00:00:00 Adum, Prema Valdez [facility] CBC WITH DIFF 2022-06-11 15:45:00 Adum, Prema Rosa [facility] GLUCOSE 1 HOUR POST PRANDIAL 2022-06-11 15:45:00 Adum, Prema Valdez [facility] CBC WITH DIFF 2022-06-11 15:45:00 Adum, Prema Rosa [facility] ADC OR SHIVANI ONLY - RPR 2022-06-11 15:45:00 Adum, Kobi Valdez [facility] HIV 1/2 AG-AB WITH REFLEX 2022-06-11 15:45:00 Adum, Kobi Valdez [facility] HB ABO GROUPING 2022-06-11 15:42:00 Adum, Prema Valdez [facility] ASSIGNMENT OF BENEFITS 2022-06-04 20:19:24 Docto r Unassigned, Hershey [facility] ASSIGNMENT OF BENEFITS 2022-06-04 20:19:24 Docto r Unassigned, Hershey [facility] CONSENT/REFUSAL FOR DIAGNOSIS AND TREATMENT 2022-06-04 20:19:00 Doctor Unassigned, [facility]hey [facility] CONSENT/REFUSAL FOR DIAGNOSIS AND TREATMENT 2022-06-04 20:19:00 Doctor Unassigned, [facility]hey [facility] >14 WEEKS US LIMITED 2022-05-29 19:26:57 Adum, Prema Valdez [facility] POCT URINALYSIS W/O SPECIFIC GRAVITY 2022-05-22 00:00:00 Admilo, Prema Valdez [facility] POCT URINALYSIS W/O SPECIFIC GRAVITY 2022-04-03 00:00:[address] [facility] EXTERNAL PROVIDER RECORDS 2022-03-14 05:01:00 Do ctor Unassigned, [facility]hey [facility] POCT URINALYSIS W/O SPECIFIC GRAVITY 2022-03-04 00:00:[address] [facility] POCT URINALYSIS W/O SPECIFIC GRAVITY 2022-02-19 16:40:[address] [facility] XR TIBIA FIBULA 2 VW RIGHT 2022-02-15 06:57:[address] [facility] URINALYSIS 2022-02-15 06:37:00 Karsten Klein [facility] CT TRAUMA THORAX W CONTRAST 2022-02-15 06:25:[address] [facility] CT TRAUMA ABDOMEN PELVIS W CONTRAST 2022-02-15 06:25:[address] [facility] CT TRAUMA HEAD WO CONTRAST 2022-02-15 06:24:[address] [facility] CT TRAUMA CERVICAL SPINE WO CONTRAST 2022-02-15 06:24:[address] [facility] CT TRAUMA THORACIC SPINE WO CONTRAST 2022-02-15 06:24:[address] [facility] CT TRAUMA LUMBAR SPINE WO CONTRAST 2022-02-15 06:24:[address] [facility] HB ABO GROUPING 2022-02-15 05:20:00 [facility] 2022-02-15 05:19:[address] COMP. METABOLIC PANEL ([id number]) 2022-02-15 05:19:[address] [facility] CBC WITH DIFF 2022-02-15 05:19:00 Karsten Klein [facility] PROTHROMBIN TIME / INR 2022-02-15 05:19:[address] [facility] ACTIVATED PARTIAL THRMPLAS JOE 2022-02-15 05:19:[address] [facility] COVID-19 (ID NOW RAPID TESTING) 2022-02-15 05:19:[address] [facility] <14 WEEKS US LIMITED 2022-02-06 18:32:18 Raad [facility] ASSIGNMENT OF BENEFITS 2022-02-05 19:29:44 Docto r Unassigned, [place] [facility] POCT URINALYSIS W/O SPECIFIC GRAVITY 2022-02-05 00:00:00 Raad [facility] Drainage of Abscess 2020-06-23 00:00:00 V illage [facility] POCT RAPID STREP SCREEN FOR GROUP A 2019-02-12 23:19:[address] [facility] ASSIGNMENT OF BENEFITS 2019-02-12 23:05:54 Docto r Unassigned, [place] [facility] SECTION Adum, [facility] SECTION Adum, [facility] Plan of Care Planned Activity Planned Date Details Comments Source Diagnostic Test Pending 2021-11-02 00:00:00 CBC w/ auto diff [code = CBC w/ auto diff] [facility] Diagnostic Test Pending 2021-11-02 00:00:00 CMP, serum or plasma [code = CMP, serum or plasma] [facility] Diagnostic Test Pending 2021-11-02 00:00:00 TSH, serum or plasma [code = TSH, serum or plasma] [facility] Diagnostic Test Pending 2021-11-02 00:00:00 T4, free, serum [code = T4, free, serum] [facility] Diagnostic Test Pending 2021-11-02 00:00:00 lipid panel, serum [code = lipid panel, serum] [facility] Diagnostic Test Pending 2021-11-02 00:00:00 HbA1c (hemoglobin A1c), blood [code = HbA1c (hemoglobin A1c), blood] [facility] Instructions [place] [facility] Encounters Start Date/Time End Date/Time Encounter Type Admission Type Attending [facility] Facility Care Department Encounter ID Source 2022-07-15 21:30:06 Outpatient P [facility] [id number] [facility] 2022-06-04 16:26:10 Outpatient P [facility] [id number] [facility] 2025-09-21 10:30:00 2025-09-21 10:30:00 Outpatient R PREMA COY [facility] [id number] [facility] 2023-01-29 00:00:00 2024-10-14 21:20:46 Letter (Out) Madison [facility] 1.84.114 350.1.13.10 4.2.7.2.686 [id number] 370 [id number] [facility] 2024-09-29 00:00:00 2024-09-29 15:50:28 Patient Secure Msg Doctor Unassigned, Hershey Doctor Unassigned, Hershey [facility] 1.84.114 350.1.13.10 4.2.7.2.686 [id number] 134 [id number] [facility] 2024-09-25 00:00:00 2024-09-25 09:02:53 Case Management Prema Coy [facility] 1..114 350.1.13.10 4.2.7.2.686 [id number] 134 [id number] [facility] 2024-09-24 10:30:00 2024-09-24 10:30:[address] [facility] [id number] [facility] 2024-09-21 08:45:00 2024-09-21 09:26:02 Outpatient R ADPREMA PEDRAZA PRE[facility] [id number] [facility] 2024-09-21 08:45:00 2024-09-21 09:26:02 Office Visit Zbigniew Prema José Miguel [facility] 1.0.114 350.1.13.10 4.2.7.2.686 [id number] 134 [id number] [facility] 2024-09-17 11:00:00 2024-09-17 11:32:30 Outpatient R ADUM, PREMA STEPHANIMILO [facility] [id number] [facility] 2024-09-17 11:00:00 2024-09-17 11:32:30 [facility] 1.840.114 350.1.13.10 4.2.7.2.686 [id number] 134 [id number] [facility] 2024-08-07 00:00:00 2024-09-11 18:19:30 Patient Secure Msg Josep s Mirian [facility] 1.20.114 350.1.13.10 4.2.7.2.686 [id number] 134 [id number] [facility] 2024-06-09 00:00:00 2024-06-09 14:46:37 Telephone Elsa Duarte [facility] 1.2840.114 350.1.13.10 4.2.7.2.686 [id number] 370 [id number] [facility] 2024-06-09 00:00:00 2024-06-09 14:41:30 Patient Secure Msg Doctor Unassigned, Hershey Doctor Unassigned, Hershey [facility] 1.2.840.114 350.1.13.10 4.2.7.2.686 [id number] 370 [id number] [facility] 2024-06-06 00:00:00 2024-06-07 20:31:05 Patient Secure Msg Doctor Unassigned, Hershey Doctor Unassigned, Hershey [facility] 1.2.840.114 350.1.13.10 4.2.7.2.686 [id number] [id number] [facility] 2024-06-07 15:40:00 2024-06-07 16:28:00 Outpatient R ELSA DUARTE [facility] [id number] [facility] 2024-06-07 15:40:00 2024-06-07 16:28:00 Urgent Care Elsa Duarte Unknown, Attending [facility] 1.2.840.114 350.1.13.10 4.2.7.2.686 [id number] 370 [id number] [facility] 2024-06-06 00:00:00 2024-06-07 09:48:58 Refill Marlene [facility] 1.2.840.114 350.1.13.10 4.2.7.2.686 [id number] 370 [id number] [facility] 2024-05-14 00:00:00 2024-05-14 17:32:44 Telephone Marlene Jeremymelani [facility] 1.2.840.114 350.1.13.10 4.2.7.2.686 [id number] 370 [id number] [facility] 2024-05-14 00:00:00 2024-05-14 15:48:46 Telephone Phyllis Ramos [facility] 1.114 350.1.13.10 4.2.7.2.686 [id number] 370 [id number] [facility] 2024-05-13 00:00:00 2024-05-13 16:22:34 Telephone Sarah Rosario [facility] 1.114 350.1.13.10 4.2.7.2.686 [id number] 370 [id number] [facility] 2024-05-12 16:30:00 2024-05-12 16:45:00 [employer] Engineering Tech Visit Lab, Getachew Chan Unknown, Attending Sarah Rosario, Getachew Chan [facility] 1.84.114 350.1.13.10 4.2.7.2.686 [id number] 353 [id number] [facility] 2024-05-12 15:20:00 2024-05-12 15:59:07 Outpatient [address] SARAH [address] [facility] [id number] [facility] 2024-05-12 15:20:00 2024-05-12 15:59:07 Urgent Care Sarah Rosario, Attending [facility] 1.84.114 350.1.13.10 4.2.7.2.686 [id number] 370 [id number] [facility] 2023-11-28 10:12:00 2023-11-28 11:15:00 Emergency X JOEY LOCKETT [facility] ERT [id number] [facility] 2023-11-28 10:12:00 2023-11-28 11:15:00 Emergency Joey Lockett [facility] 1..114 350.1.13.10 4.2.7.2.686 [id number] [id number] [facility] 2023-11-18 14:40:00 2023-11-18 15:38:02 Outpatient R VIRGILMINGO SINHA [facility] [id number] [facility] 2023-11-18 14:40:00 2023-11-18 15:38:02 Urgent Care Mingo Mcduffie Unknown, Attending [facility] 1.840.114 350.1.13.10 4.2.7.2.686 [id number] 370 [id number] [facility] 2023-08-27 00:00:00 2023-08-27 00:00:00 Patient Secure Msg Doctor Unassigned, Hershey [facility] 1.840.114 350.1.13.10 4.2.7.2.686 [id number] [facility] 2023-08-22 06:57:00 2023-08-22 09:11:00 Emergency X DESTINRADHADORIS JR [facility] ERT [id number] [facility] 2023-08-22 06:57:00 2023-08-22 09:11:00 Emergency Destindreavitor Jr Noa [facility] 1..840.114 350.1.13.10 4.2.7.2.686 [id number] [id number] [facility] 2023-08-18 12:20:00 2023-08-18 12:40:00 Urgent Care Sarah Rosario Unknown, Attending [facility]?CHARLENEBetty [facility] 1.84.114 350.1.13.10 4.2.7.2.686 [id number] 370 [id number] [facility] 2023-08-18 12:20:00 2023-08-18 12:20:00 Outpatient R SARAH [address]ARIO [facility] [id number] [facility] 2023-07-28 16:40:00 2023-07-28 21:25:00 Emergency X MARLIN STEPHENSON [facility] ERT [id number] [facility] 2023-07-28 16:40:00 2023-07-28 21:25:00 Emergency Marlin Setphenson [facility] 1.2.840.114 350.1.13.10 4.2.7.2.686 [id number] [id number] [facility] 2023-06-23 14:43:00 2023-06-23 16:27:00 Emergency X NETTA VELAZCO [facility] ERT [id number] [facility] 2023-06-23 14:43:00 2023-06-23 16:27:00 Emergency [facility] 1.2.840.114 350.1.13.10 4.2.7.2.686 [id number] 084 [id number] [facility] 2023-04-24 20:18:00 2023-04-24 22:23:00 Emergency NAPOLEON GOEL TIMOTHY [facility] ERT [id number] [facility] 2023-04-24 20:18:00 2023-04-24 22:23:00 Emergency Napoleon Montanez [facility] 1.2.840.114 350.1.13.10 4.2.7.2.686 [id number] 084 [id number] [facility] 2023-04-21 10:23:00 2023-04-21 10:38:00 Emergency NETTA COKER [facility] ERT [id number] [facility] 2023-04-21 10:23:00 2023-04-21 10:38:00 Emergency Cary Netta Kidd [facility] 1.2.840.114 350.1.13.10 4.2.7.2.686 [id number] 084 [id number] [facility] 2023-04-17 00:00:00 2023-04-17 00:00:00 Case Management Santos [facility]clure [facility] 1.84114 350.1.13.10 4.2.7.2.686 [id number] 370 [id number] [facility] 2023-04-16 00:00:00 2023-04-16 00:00:00 [facility] 1.114 350.1.13.10 4.2.7.2.686 [id number] 370 [id number] [facility] 2023-04-15 09:40:00 2023-04-15 10:19:06 Outpatient R SANTOS MCC[facility]URE [facility] [id number] [facility] 2023-04-15 09:40:00 2023-04-15 10:19:06 Urgent Care Sanots Mcclure Unknown, Attending [facility] 1.84.114 350.1.13.10 4.2.7.2.686 [id number] 370 [id number] [facility] 2023-02-18 16:00:00 2023-02-18 16:17:10 Outpatient R PHYLLIS RAMOS [facility] [id number] [facility] 2023-02-18 16:00:00 2023-02-18 16:17:10 Urgent Care Phyllis Ramos Unknown, Attending [facility] 1.84.114 350.1.13.10 4.2.7.2.686 [id number] 370 [id number] [facility] 2023-02-18 00:00:00 2023-02-18 00:00:00 Orders Only Doctor Unassigned, Hershey [facility] 1.84.114 350.1.13.10 4.2.7.2.686 [id number] [facility] 2023-02-18 00:00:00 2023-02-18 00:00:00 Letter (Out) Fe Ramosedita [facility] 1.840.114 350.1.13.10 4.2.7.2.686 [id number] 370 [id number] [facility] 2023-02-01 00:00:00 2023-02-01 00:00:00 Case Management Santos Mcclure [facility] 1.840.114 350.1.13.10 4.2.7.2.686 [id number] 370 [id number] [facility] 2023-01-29 12:40:00 2023-01-29 13:12:13 Outpatient R MADISON GRAYSON [facility] [id number] [facility] 2023-01-29 12:40:00 2023-01-29 13:12:13 Urgent Care Madison Grayson Unknown, Attending [facility] 1.840.114 350.1.13.10 4.2.7.2.686 [id number] 370 [id number] [facility] 2023-01-29 00:00:00 2023-01-29 00:00:00 Telephone Provider, Getachew Chan Urgent Care [facility] 1.840.114 350.1.13.10 4.2.7.2.686 [id number] 370 [id number] [facility] 2023-01-08 00:00:00 2023-01-08 00:00:00 Hayley Cagle [facility] 1.840.114 350.1.13.10 4.2.7.2.686 [id number] 044 [id number] [facility] 2022-12-27 00:00:00 2022-12-27 00:00:00 Patient Secure Msg Doctor Unassigned, Hershey [facility] 1.114 350.1.13.10 4.2.7.2.686 [id number] [id number] [facility] 2022-12-27 00:00:00 2022-12-27 00:00:00 Telephone Sarah Rosario [facility] 1.114 350.1.13.10 4.2.7.2.686 [id number] 370 [id number] [facility] 2022-12-27 00:00:00 2022-12-27 00:00:00 Patient Secure Msg Doctor Unassigned, Hershey [facility] 1.114 350.1.13.10 4.2.7.2.686 [id number] 370 [id number] [facility] 2022-12-27 00:00:00 2022-12-27 00:00:00 Patient Secure Msg Doctor Unassigned, Hershey [facility] 1.114 350.1.13.10 4.2.7.2.686 [id number] 370 [id number] [facility] 2022-12-26 11:00:00 2022-12-26 12:09:30 Outpatient R SARAH ROSARIO [facility] [id number] [facility] 2022-12-26 11:00:00 2022-12-26 12:09:30 Urgent Care StewSarah blankenship Unknown, Attending [facility] 1.114 350.1.13.10 4.2.7.2.686 [id number] 370 [id number] [facility] 2022-12-26 12:00:00 2022-12-26 12:06:37 [employer] Engineering Tech Visit Lab, Mirian Baugh [facility] 1.114 350.1.13.10 4.2.7.2.686 [id number] [facility] 2022-10-09 15:30:00 2022-10-09 16:58:42 Outpatient R ADUM, [facility] [id number] [facility] 2022-10-09 15:30:00 2022-10-09 16:58:42 Routine Visit Ad, [facility] 1.2840.114 350.1.13.10 4.2.7.2.686 [id number] 134 [id number] [facility] 2022-10-09 00:00:00 2022-10-09 00:00:00 Orders Only Doctor Unassigned, Hershey [facility] 1.840.114 350.1.13.10 4.2.7.2.686 [id number] [facility] 2022-09-24 15:45:00 2022-09-24 16:19:31 Outpatient R ADUM, [facility] [id number] [facility] 2022-09-24 15:45:00 2022-09-24 16:19:31 Routine Visit Ad, [facility] 1.2840.114 350.1.13.10 4.2.7.2.686 [id number] [facility] 2022-09-11 11:15:00 2022-09-11 11:15:00 Outpatient R ADUM, [facility] [id number] [facility] 2022-09-11 00:00:00 2022-09-11 00:00:00 Patient Secure Msg Doctor Unassigned, Hershey [facility] 1.20.114 350.1.13.10 4.2.7.2.686 [id number] [id number] [facility] 2022-08-30 21:13:00 2022-09-04 19:38:00 Inpatient X ADUMPREMA [facility] [id number] [facility] 2022-08-30 21:13:00 2022-09-04 19:38:00 Hospital Encounter Adum, Alexa Downey [facility] 1.2.840.114 350.1.13.10 4.2.7.2.686 [id number] [id number] [facility] 2022-08-27 00:36:00 2022-08-29 13:50:00 Inpatient P ADMILO, PREMA [facility] [id number] [facility] 2022-08-27 00:36:00 2022-08-29 13:50:00 Hospital Encounter AdPrema pedraza 1.2.840.1 59955.1.1 3.104.2.7 .3.137308 .8 [id number] [facility] 2022-08-28 20:03:25 2022-08-28 20:03:25 Anesthesia Event Jc Alejo 1.2.840.1 63447.1.1 3.104.2.7 .3.580782 .8 [id number] [facility] 2022-08-28 06:18:00 2022-08-28 08:23:00 Surgery AdPrema pedraza 1.2.840.1 24263.1.1 3.104.2.7 .3.940848 .8 [id number] [facility] 2022-08-28 06:15:00 2022-08-28 08:20:00 Surgery AdumPrema [facility] 1.2.840.114 350.1.13.10 4.2.7.2.686 [id number] [id number] [facility] 2022-08-27 15:30:00 2022-08-28 07:21:00 Anesthesia Event Zana Villafuerte 1.2.840.1 70354.1.1 3.104.2.7 .3.807881 .8 [id number] [facility] 2022-08-27 00:00:00 2022-08-27 00:00:00 Orders Only Doctor Unassigned, Hershey [facility] 1.2.840.114 350.1.13.10 4.2.7.2.686 [id number] [id number] [facility] 2022-08-27 00:00:00 2022-08-27 00:00:00 Travel 1.2.840.1 13893.1.1 3.104.2.7 .3.831887 .8 1.2.840.114 350.1.13.10 4.2.7.3.698 084.8 [id number] [facility] 2022-08-21 15:15:00 2022-08-21 15:43:[address] [facility] [id number] [facility] 2022-08-21 15:15:00 2022-08-21 15:43:35 Routine Visit Prema Coy 1.2.840.1 14964.1.1 3.104.2.7 .3.714762 .8 [id number] [facility] 2022-08-21 00:00:00 2022-08-21 00:00:00 Orders Only Doctor Unassigned, Hershey 1.2.840.1 99990.1.1 3.104.2.7 .3.657107 .8 [id number] [facility] 2022-08-21 00:00:00 2022-08-21 00:00:00 Travel 1.2.840.1 91388.1.1 3.104.2.7 .3.291587 .8 1.2.840.114 350.1.13.10 4.2.7.3.698 084.8 [id number] [facility] 2022-08-14 15:00:00 2022-08-14 15:16:[address] [facility] [id number] [facility] 2022-08-14 15:00:00 2022-08-14 15:16:06 Routine Visit AdumPrema 1.2.840.1 82844.1.1 3.104.2.7 .3.150515 .8 [id number] [facility] 2022-08-14 00:00:00 2022-08-14 00:00:00 Letter (Out) AdPrema pedraza 1.2.840.1 42961.1.1 3.104.2.7 .3.099833 .8 [id number] [facility] 2022-08-14 00:00:00 2022-08-14 00:00:00 Travel 1.2.840.1 92236.1.1 3.104.2.7 .3.560416 .8 1.2.840.114 350.1.13.10 4.2.7.3.698 084.8 [id number] [facility] 2022-08-12 12:30:00 2022-08-12 12:45:00 [employer] Tech Visit AdumPrema Pob, Adc Lab Main 1.2.840.1 41226.1.1 3.104.2.7 .3.937233 .8 [id number] [facility] 2022-08-12 12:30:00 2022-08-12 12:30:00 Out[address]MA PEDRAZA [facility] [id number] [facility] 2022-08-07 15:30:00 2022-08-07 16:07:[address] [facility] [id number] [facility] 2022-08-07 15:30:00 2022-08-07 16:07:23 Routine Visit AdPrema pedraza 1.2.840.1 39984.1.1 3.104.2.7 .3.840158 .8 [id number] [facility] 2022-08-07 00:00:00 2022-08-07 00:00:00 Orders Only Doctor Unassigned, Hershey 1.2.840.1 69567.1.1 3.104.2.7 .3.523396 .8 [id number] [facility] 2022-08-07 00:00:00 2022-08-07 00:00:00 Travel 1.2.840.1 19140.1.1 3.104.2.7 .3.559284 .8 1.2.840.114 350.1.13.10 4.2.7.3.698 084.8 [id number] [facility] 2022-07-31 15:30:00 2022-07-31 15:49:20 Outpatient R [address]MA [address]O [facility] [id number] [facility] 2022-07-31 15:30:00 2022-07-31 15:49:20 Routine Visit Adum, Prema L 1.2.840.1 99812.1.1 3.104.2.7 .3.883733 .8 [id number] [facility] 2022-07-31 00:00:00 2022-07-31 00:00:00 Travel 1.2.840.1 43066.1.1 3.104.2.7 .3.898830 .8 1.2.840.114 350.1.13.10 4.2.7.3.698 084.8 [id number] [facility] 2022-07-17 14:30:00 2022-07-17 14:31:[address]MA [facility] [facility] [id number] [facility] 2022-07-17 14:30:00 2022-07-17 14:31:23 Routine Visit AdPrema pedraza L 1.2.840.1 01326.1.1 3.104.2.7 .3.996961 .8 [id number] [facility] 2022-07-16 17:40:00 2022-07-16 18:40:00 Ancillary Procedure VicenteRandy Florencio 1.2.840.1 41089.1.1 3.104.2.7 .3.272356 .8 [id number] [facility] 2022-07-15 17:40:00 2022-07-15 20:30:00 Outpatient P RANDY OSEI [facility] [id number] [facility] 2022-07-15 17:40:00 2022-07-15 20:30:00 Hospital Encounter Vicente Randy Stinson 1.2.840.1 55104.1.1 3.104.2.7 .3.002591 .8 [id number] [facility] 2022-07-15 00:00:00 2022-07-15 00:00:00 Orders Only Doctor Unassigned, Hershey 1.2.840.1 03044.1.1 3.104.2.7 .3.018701 .8 [id number] [facility] 2022-07-15 00:00:00 2022-07-15 00:00:00 Travel 1.2.840.1 32785.1.1 3.104.2.7 .3.197621 .8 1.2.840.114 350.1.13.10 4.2.7.3.698 084.8 [id number] [facility] 2022-07-03 11:00:00 2022-07-03 11:40:14 Out[address]MA [facility]Y [facility] [id number] [facility] 2022-07-03 11:00:00 2022-07-03 11:40:14 Routine Visit Prema Coy 1.2.840.1 36724.1.1 3.104.2.7 .3.079484 .8 [id number] [facility] 2022-07-03 00:00:00 2022-07-03 00:00:00 Travel 1.2.840.1 24401.1.1 3.104.2.7 .3.354247 .8 1.2.840.114 350.1.13.10 4.2.7.3.698 084.8 [id number] [facility] 2022-06-19 10:00:00 2022-06-19 10:38:08 [address]MA [facility] [facility] [id number] [facility] 2022-06-19 10:00:00 2022-06-19 10:38:08 Routine Visit Prema Coy 1.2.840.1 26884.1.1 3.104.2.7 .3.563577 .8 [id number] [facility] 2022-06-11 08:45:00 2022-06-11 09:00:00 [employer] Tech Visit AdPrema pedraza Pob, Adc Lab Main 1.2.840.1 56956.1.1 3.104.2.7 .3.657641 .8 [id number] [facility] 2022-06-11 08:45:00 2022-06-11 08:45:00 Outpatient R PREMA OCY [facility] [id number] [facility] 2022-06-04 14:29:00 2022-06-04 16:25:00 Outpatient P PREMA COY [facility] [id number] [facility] 2022-06-04 14:29:00 2022-06-04 16:25:00 Hospital Encounter AdPrema pedraza 1.2.840.1 41361.1.1 3.104.2.7 .3.673097 .8 [id number] [facility] 2022-06-04 00:00:00 2022-06-04 00:00:00 Telephone AdPrema pedraza 1.2.840.1 15175.1.1 3.104.2.7 .3.512450 .8 [id number] [facility] 2022-06-04 00:00:00 2022-06-04 00:00:00 Orders Only Doctor Unassigned, [place] 1.2.840.1 93528.1.1 3.104.2.7 .3.226589 .8 [id number] [facility] 2022-05-31 00:00:00 2022-05-31 00:00:00 Case Management AdumPrema 1.2840.1 36879.1.1 3.104.2.7 .3.153866 .8 [id number] [facility] 2022-05-29 15:45:00 2022-05-29 15:45:00 Routine Visit Adum Prema Valdez [facility] 1.0.114 350.1.13.10 4.2.7.2.686 [id number] [facility] 2022-05-29 15:45:00 2022-05-29 13:30:27 Outpatient R ADUM, PREMA [facility] [id number] [facility] 2022-05-29 00:00:00 2022-05-29 00:00:00 Telephone AdumPrema [facility] 1.0.114 350.1.13.10 4.2.7.2.686 [id number] 134 [id number] [facility] 2022-05-22 14:15:00 2022-05-22 14:57:29 Outpatient R ADMILO [facility] [id number] [facility] 2022-05-22 14:15:00 2022-05-22 14:57:29 Routine Visit AdmiloPrema [facility] 1.0.114 350.1.13.10 4.2.7.2.686 [id number] 134 [id number] [facility] 2022-05-01 11:00:00 2022-05-01 11:00:00 Outpatient R [address]MA [facility] [id number] [facility] 2022-04-29 11:00:00 2022-04-29 12:00:00 [employer] Tech Visit Ultrasound, Kathy Chiquita Miller Serafin [facility] CR[facility] [employer] HELPER [facility] 1..114 350.1.13.10 4.2.7.2.686 [id number] [facility] 2022-04-29 11:00:00 2022-04-29 11:00:00 Outpatient P CHIQUITA [facility] [id number] [facility] 2022-04-08 10:45:00 2022-04-08 11:00:00 [employer] Tech Visit Pob, Adc Lab Main Randy Osei Vivian [facility] 1.114 350.1.13.10 4.2.7.2.686 [id number] [facility] 2022-04-08 10:45:00 2022-04-08 10:45:00 Outpatient R ZBIGNIEW [facility] [id number] [facility] 2022-04-03 11:00:00 2022-04-03 11:33:44 Outpatient R ZBIGNIEW [facility] [id number] [facility] 2022-04-03 11:00:00 2022-04-03 11:33:44 Routine Visit Prema Coy [facility] 1.114 350.1.13.10 4.2.7.2.686 [id number] 134 [id number] [facility] 2022-03-14 00:00:00 2022-03-14 00:00:00 Orders Only Doctor Unassigned, Hers[place] [facility] 1.114 350.1.13.10 4.2.7.2.686 [id number] [facility] 2022-03-13 00:00:00 2022-03-13 00:00:00 Telephone Gualberto Shankar [facility] 1.2840.114 350.1.13.10 4.2.7.2.686 [id number] 134 [id number] [facility] 2022-03-04 11:00:00 2022-03-04 11:25:05 Outpatient R GUALBERTO SHANKAR [facility] [id number] [facility] 2022-03-04 11:00:00 2022-03-04 11:25:05 Routine Visit Gualberto Shankar [facility] 1.2840.114 350.1.13.10 4.2.7.2.686 [id number] 134 [id number] [facility] 2022-03-04 00:00:00 2022-03-04 00:00:00 Telephone Gualberto Shankar [facility] 1.2840.114 350.1.13.10 4.2.7.2.686 [id number] 134 [id number] [facility] 2022-03-01 00:00:00 2022-03-01 00:00:00 Telephone Gualberto Shankar [facility] 1.2840.114 350.1.13.10 4.2.7.2.686 [id number] [facility] 2022-02-20 08:30:00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 transmitted reference range: 166 - 358 10*3/?L. The reference range was not used to interpret this result as normal/abnormal. MPV (test code = 22146-0) 10.2 fL 9.5-12.9 NRBC/100 WBC (test code = 6101656770) 0.0 See_Comment [Automated me ssage] The system which generated this result transmitted reference range: 0.0 - 10.0 /100 WBCs. The reference range was not used to interpret this result as normal/abnormal. NRBC x10^3 (test code = 7994736065) See_Comment [Automated messa ge] The system which generated this result transmitted reference range: 10*3/?L. The reference range was not used to interpret this result as normal/abnormal. GRAN MAT (NEUT) % (test code = 770-8) 62.4 % IMM GRAN % (test code = 1134611443) 0.40 % LYMPH % (test code = 736-9) 27.6 % MONO % (test code = 5905-5) 6.8 % EOS % (test code = 713-8) 2.2 % BASO % (test code = 706-2) 0.6 % GRAN MAT x10^3(ANC) (test code = 3555994418) 3.12 10*3/uL 1.88-7.09 IMM GRAN x10^3 (test code = 5341835291) 0.00-0.06 LYMPH x10^3 (test code = 731-0) 1.38 10*3/uL 1.32-3.29 MONO x10^3 (test code = 742-7) 0.34 10*3/uL 0.33-0.92 EOS x10^3 (test code = 711-2) 0.11 10*3/uL 0.03-0.39 BASO x10^3 (test code = 704-7) 0.03 10*3/uL 0.01-0.07 Lab Interpretation (test code = 15351-9) Abnormal [facility] with Gyvodrwvjkgp4723-90-02 04:55:48* Test Item Value Reference Range Interpretation Comme nts WBC (test code = 6690-2) 6.06 See_Comment [Automated message] The system which generated this result transmitted reference range: 4.30 - 11.10 10*3/?L. The reference range was not used to interpret this result as normal/abnormal. RBC (test code = 789-8) 3.54 See_Comment L [Automated message] The system which generated this result transmitted reference range: 3.93 - 5.25 10*6/?L. The reference range was not used to interpret this result as normal/abnormal. HGB (test code = 718-7) 10.3 g/dL 11.6-15.0 L HCT (test code = 4544-3) 32.3 % 35.7-45.2 L MCV (test code = 787-2) 91.2 fL 80.6-95.5 MCH (test code = 785-6) 29.1 pg 25.9-32.8 MCHC (test code = 786-4) 31.9 g/dL 31.6-35.1 RDW-SD (test code = 19715-6) 45.1 fL 39.0-49.9 RDW-CV (test code = 788-0) 13.4 % 12.0-15.5 PLT (test code = 777-3) 178 See_Comment [Automated message] The system which generated this result transmitted reference range: 166 - 358 10*3/?L. The reference range was not used to interpret this result as normal/abnormal. MPV (test code = 90372-9) 11.2 fL 9.5-12.9 NRBC/100 WBC (test code = 9463971401) 0.0 See_Comment [Automated [employer] ge] The system which generated this result transmitted reference range: 0.0 - 10.0 /100 WBCs. The reference range was not used to interpret this result as normal/abnormal. NRBC x10^3 (test code = 8168607418) See_Comment [Automated [employer] ge] The system which generated this result transmitted reference range: 10*3/?L. The reference range was not used to interpret this result as normal/abnormal. SEG % (test code = 55148-6) 73 % 33-76 LYMPH % (test code = 61434-9) 20 % 14-54 MONO % (test code = 27258-6) 7 % 0-4 H PLT ESTIMATE (test code = 9317-9) Normal Normal GIANT PLATELETS (test code = 5908-9) Present See_Comment A [Automated [employer] ge] The system which generated this result transmitted reference range: (none). The reference range was not used to interpret this result as normal/abnormal. Lab Interpretation (test code = 92936-8) [facility]normal [facility] Agzpy5165-82-16 04:11:17* Test Item Value Reference Range Interpretation Comme [facility] URIC ACID (test code = 8340114486) 3.1 mg/dL 2.9-6.0 Lab Interpretation (test cod e = 92328-2) Normal [facility] Transfer[facility] (SGPT)2022-08-31 04:11:17* Test Item Value Reference Range Interpretation Comme nts ALTv (test code = 1742-6) 22 U/L 5-35 Lab Interpretation (test cod e = 10792-2) Normal [facility]kin[facility] Nxokz5252-03-91 04:10:57* Test Item Value Reference Range Interpretation Comme [facility] CREATININE (test code = 3275381902) 0.65 mg/dL 0.50-1.04 eGFR (test code = 9712726861) 116.2 mL/min/1.73m2 MAY (test code = MAY) Association of Glomerular Filtration Rate (GFR) and Staging of Kidney Disease* + + +- +| GFR (mL/min/1.73 m2) ?| With Kidney Damage ?| ?Without Kidney Damage+ ------+ ----+ ------+| ?>90 ?| ?Stage one ?| ? Normal ?+ -+ + -+| ?60-89 ?| ?Stage two ?| ? Decreased GFR ? + + +- +| ?30-59 ?| ?Stage three ?| ? Stage three ? + + +- +| ?15-29 ?| ?Stage four ? | ? Stage four ?+ -+ + -+| ?<15 (or dialysis) ? ?| ?Stage five ? | ? Stage five ?+ -+ + -+ *Each stage assumes the associated GFR level has been in effect for at least three months. ?Stages 1 to 5, with or without kidney disease, indicate chronic kidney disease. Notes: Determination of stages one and two (with eGFR >59mL/min/1.73 m2) requires estimation of kidney damage for at least three months as defined by structural or functional abnormalities of the kidney, manifested by either:Pathological abnormalities or Markers of kidney damage (including abnormalities in the composition of the blood or urine or abnormalities in imaging tests). [facility] (Asparate Amino Transfer)2022-08-31 04:10:57* Test Item Value Reference Range Interpretation Comme nts AST(SGOT) (test code = 5648351159) 31 U/L 13-40 Lab Interpretation (test cod e = 29178-1) Normal [facility]kin[facility]act[facility] Upxzmaqnhnrxr6844-81-06 04:10:37* Test Item Value Reference Range Interpretation Comme nts LDH (test code = 5420544564) 262 U/L 120-246 H Lab Interpretation (test cod e = 23974-2) Abnormal [facility] with Xmzcelhvqxwi1212-42-90 10:20:53* Test Item Value Reference Range Interpretation Comme nts WBC (test code = 6690-2) 9.35 See_Comment [Automated messa ge] The system which generated this result transmitted reference range: 4.30 - 11.10 10*3/?L. The reference range was not used to interpret this result as normal/abnormal. RBC (test code = 789-8) 3.49 See_Comment L [Automated messa ge] The system which generated this result transmitted reference range: 3.93 - 5.25 10*6/?L. The reference range was not used to interpret this result as normal/abnormal. HGB (test code = 718-7) 10.3 g/dL 11.6-15.0 L HCT (test code = 4544-3) 31.0 % 35.7-45.2 L MCV (test code = 787-2) 88.8 fL 80.6-95.5 MCH (test code = 785-6) 29.5 pg 25.9-32.8 MCHC (test code = 786-4) 33.2 g/dL 31.6-35.1 RDW-SD (test code = 31551-5) 42.6 fL 39.0-49.9 RDW-CV (test code = 788-0) 13.2 % 12.0-15.5 PLT (test code = 777-3) 155 See_Comment L [Automated messa ge] The system which generated this result transmitted reference range: 166 - 358 10*3/?L. The reference range was not used to interpret this result as normal/abnormal. MPV (test code = 58822-3) 11.7 fL 9.5-12.9 NRBC/100 WBC (test code = 3258717829) 0.0 See_Comment [Automated me ssage] The system which generated this result transmitted reference range: 0.0 - 10.0 /100 WBCs. The reference range was not used to interpret this result as normal/abnormal. NRBC x10^3 (test code = 6869886719) See_Comment [Automated messa ge] The system which generated this result transmitted reference range: 10*3/?L. The reference range was not used to interpret this result as normal/abnormal. GRAN MAT (NEUT) % (test code = 770-8) 78.0 % IMM GRAN % (test code = 5270876620) 0.50 % LYMPH % (test code = 736-9) 13.8 % MONO % (test code = 5905-5) 7.2 % EOS % (test code = 713-8) 0.1 % BASO % (test code = 706-2) 0.4 % GRAN MAT x10^3(ANC) (test code = 8863428405) 7.29 10*3/uL 1.88-7.09 H IMM GRAN x10^3 (test code = 7873402177) 0.05 10*3/uL 0.00-0.06 LYMPH x10^3 (test code = 731-0) 1.29 10*3/uL 1.32-3.29 L MONO x10^3 (test code = 742-7) 0.67 10*3/uL 0.33-0.92 EOS x10^3 (test code = 711-2) 0.03-0.39 L BASO x10^3 (test code = 704-7) 0.04 10*3/uL 0.01-0.07 Lab Interpretation (test code = 17832-4) Abnormal [facility] with Kuagkgrzjans0307-48-19 10:20:53* Test Item Value Reference Range Interpretation Comme nts WBC (test code = 6690-2) 9.35 See_Comment [Automated messa ge] The system which generated this result transmitted reference range: 4.30 - 11.10 10*3/?L. The reference range was not used to interpret this result as normal/abnormal. RBC (test code = 789-8) 3.49 See_Comment L [Automated messa ge] The system which generated this result transmitted reference range: 3.93 - 5.25 10*6/?L. The reference range was not used to interpret this result as normal/abnormal. HGB (test code = 718-7) 10.3 g/dL 11.6-15.0 L HCT (test code = 4544-3) 31.0 % 35.7-45.2 L MCV (test code = 787-2) 88.8 fL 80.6-95.5 MCH (test code = 785-6) 29.5 pg 25.9-32.8 MCHC (test code = 786-4) 33.2 g/dL 31.6-35.1 RDW-SD (test code = 64217-5) 42.6 fL 39.0-49.9 RDW-CV (test code = 788-0) 13.2 % 12.0-15.5 PLT (test code = 777-3) 155 See_Comment L [Automated messa ge] The system which generated this result transmitted reference range: 166 - 358 10*3/?L. The reference range was not used to interpret this result as normal/abnormal. MPV (test code = 66259-4) 11.7 fL 9.5-12.9 NRBC/100 WBC (test code = 6503792509) 0.0 See_Comment [Automated [place] ssage] The system which generated this result transmitted reference range: 0.0 - 10.0 /100 WBCs. The reference range was not used to interpret this result as normal/abnormal. NRBC x10^3 (test code = 6785676780) See_Comment [Automated messa ge] The system which generated this result transmitted reference range: 10*3/?L. The reference range was not used to interpret this result as normal/abnormal. GRAN MAT (NEUT) % (test code = 770-8) 78.0 % IMM GRAN % (test code = 9734336693) 0.50 % LYMPH % (test code = 736-9) 13.8 % MONO % (test code = 5905-5) 7.2 % EOS % (test code = 713-8) 0.1 % BASO % (test code = 706-2) 0.4 % GRAN MAT x10^3(ANC) (test code = 7113514139) 7.29 10*3/uL 1.88-7.09 H IMM GRAN x10^3 (test code = 1170513117) 0.05 10*3/uL 0.00-0.06 LYMPH x10^3 (test code = 731-0) 1.29 10*3/uL 1.32-3.29 L MONO x10^3 (test code = 742-7) 0.67 10*3/uL 0.33-0.92 EOS x10^3 (test code = 711-2) 0.03-0.39 L BASO x10^3 (test code = 704-7) 0.04 10*3/uL 0.01-0.07 Lab Interpretation (test code = 76116-7) Abnormal [facility] (SGPT)2022-08-28 10:20:37* Test Item Value Reference Range Interpretation Comme nts ALTv (test code = 1742-6) 17 U/L 5-35 Lab Interpretation (test cod e = 08268-6) Normal [facility] Jmhkx6646-80-30 10:20:37* Test Item Value Reference Range Interpretation Comme nts URIC ACID (test code = 2155304169) 3.3 mg/dL 2.9-6.0 Lab Interpretation (test cod e = 88919-1) Normal [facility] Bmjea4625-25-67 10:20:37* Test Item Value Reference Range Interpretation Comme nts URIC ACID (test code = 0885026435) 3.3 mg/dL 2.9-6.0 Lab Interpretation (test cod e = 60219-1) Normal [facility] Amin[facility] Transfer[facility] (SGPT)2022-08-28 10:20:37* Test Item Value Reference Range Interpretation Comme nts ALTv (test code = 1742-6) 17 U/L 5-35 Lab Interpretation (test cod e = 19275-6) Normal [facility] Amin[facility] Transfer[facility] (SGPT)2022-08-28 10:20:37* Test Item Value Reference Range Interpretation Comme nts ALTv (test code = 1742-6) 17 U/L 5-35 Lab Interpretation (test cod e = 65437-8) Normal [facility] Lxcpa7671-45-14 10:20:37* Test Item Value Reference Range Interpretation Comme nts URIC ACID (test code = 4326388881) 3.3 mg/dL 2.9-6.0 Lab Interpretation (test cod e = 91277-5) Normal [facility] Nchfk3113-85-61 10:20:37* Test Item Value Reference Range Interpretation Comme nts URIC ACID (test code = 9973472927) 3.3 mg/dL 2.9-6.0 Lab Interpretation (test cod e = 87698-9) Normal [facility] (SGPT)2022-08-28 10:20:37* Test Item Value Reference Range Interpretation Comme nts ALTv (test code = 1742-6) 17 U/L 5-35 Lab Interpretation (test cod e = 42709-6) [facility] 10:20:37* Test Item Value Reference Range Interpretation Comme nts ALTv (test code = 1742-6) 17 U/L 5-35 Lab Interpretation (test cod e = 46854-4) Normal [facility] Yvlhq2811-97-45 10:20:37* Test Item Value Reference Range Interpretation Comme nts URIC ACID (test code = 5917372205) 3.3 mg/dL 2.9-6.0 Lab Interpretation (test cod e = 03250-0) [facility]2022-08-28 10:20:17* Test Item Value Reference Range Interpretation Comme nts AST(SGOT) (test code = 9152202485) 22 U/L 13-40 Lab Interpretation (test cod e = 28630-3) Normal [facility] Wsfre8620-52-36 10:20:17* Test Item Value Reference Range Interpretation Comme nts CREATININE (test code = 6600285106) 0.48 mg/dL 0.50-1.04 L eGFR (test code = 7625239713) 164.9 mL/min/1.73m2 MAY (test code = MAY) Association of Glomerular Filtration Rate (GFR) and Staging of Kidney Disease* + --+ --+ ------+| GFR (mL/min/1.73 m2) ?| With Kidney Damage ?| ?Without Kidney Damage+ --------+ --------+ +| ?>90 ?| ?Stage one ?| ? Normal ?+ ---+ ---+ -------+| ?60-89 ?| ?Stage two ?| ? Decreased GFR ? + --+ --+ ------+| ?30-59 ?| ?Stage three ?| ? Stage three ? + --+ --+ ------+| ?15-29 ?| ?Stage four ? | ? Stage four ?+ ---+ ---+ -------+| ?<15 (or dialysis) ? ?| ?Stage five ? | ? Stage five ?+ ---+ ---+ -------+ *Each stage assumes the associated GFR level has been in effect for at least three months. ?Stages 1 to 5, with or without kidney disease, indicate chronic kidney disease. Notes: Determination of stages one and two (with eGFR >59mL/min/1.73 m2) requires estimation of kidney damage for at least three months as defined by structural or functional abnormalities of the kidney, manifested by either:Pathological abnormalities or Markers of kidney damage (including abnormalities in the composition of the blood or urine or abnormalities in imaging tests). Lab Interpretation (test code = 70393-8) [facility]22-[facility]-28 10:20:17* Test Item Value Reference Range Interpretation [facility] AST(SGOT) (test code = 3387331916) 22 U/L 13-40 Lab Interpretation (test cod e = 69291-1) [facility]2022-08-28 10:20:17* Test Item Value Reference Range Interpretation Comme nts AST(SGOT) (test code = 5661895339) 22 U/L 13-40 Lab Interpretation (test cod e = 10639-0) Normal [facility] Zopss4744-62-05 10:20:17* Test Item Value Reference Range Interpretation Comme [facility] CREATININE (test code = 2169244704) 0.48 mg/dL 0.50-1.04 L eGFR (test code = 0821309887) 164.9 mL/min/1.73m2 MAY (test code = MAY) Association of Glomerular Filtration Rate (GFR) and Staging of Kidney Disease* + --+ --+ ------+| GFR (mL/min/1.73 m2) ?| With Kidney Damage ?| ?Without Kidney Damage+ --------+ --------+ +| ?>90 ?| ?Stage one ?| ? Normal ?+ ---+ ---+ -------+| ?60-89 ?| ?Stage two ?| ? Decreased GFR ? + --+ --+ ------+| ?30-59 ?| ?Stage three ?| ? Stage three ? + --+ --+ ------+| ?15-29 ?| ?Stage four ? | ? Stage four ?+ ---+ ---+ -------+| ?<15 (or dialysis) ? ?| ?Stage five ? | ? Stage five ?+ ---+ ---+ -------+ *Each stage assumes the associated GFR level has been in effect for at least three months. ?Stages 1 to 5, with or without kidney disease, indicate chronic kidney disease. Notes: Determination of stages one and two (with eGFR >59mL/min/1.73 m2) requires estimation of kidney damage for at least three months as defined by structural or functional abnormalities of the kidney, manifested by either:Pathological abnormalities or Markers of kidney damage (including abnormalities in the composition of the blood or urine or abnormalities in imaging tests). Lab Interpretation (test code = 69820-9) [facility]2022-08-28 10:20:17* Test Item Value Reference Range Interpretation Comme nts AST(SGOT) (test code = 8971230093) 22 U/L 13-40 Lab Interpretation (test cod e = 28439-9) Normal [facility] (Asparate Amino Transfer)2022-08-28 10:20:17* Test Item Value Reference Range Interpretation Comme nts AST(SGOT) (test code = 0789970662) 22 U/L 13-40 Lab Interpretation (test cod e = 08530-7) Normal [facility] Totrzagfuluzz1566-12-74 10:19:56* Test Item Value Reference Range Interpretation Comme nts LDH (test code = 4181397351) 149 U/L 120-246 Lab Interpretation (test cod e = 40337-7) [facility] Qseztsdouenas5932-05-33 10:19:56* Test Item Value Reference Range Interpretation Comme nts LDH (test code = 1317183404) 149 U/L 120-246 Lab Interpretation (test cod e = 25734-1) Normal [facility] Hrxooxarjbbnp8723-31-97 10:19:56* Test Item Value Reference Range Interpretation Comme nts LDH (test code = 3333643409) 149 U/L 120-246 Lab Interpretation (test cod e = 57976-3) Normal [facility] Kwjkflwguoqjp1307-25-62 10:19:56* Test Item Value Reference Range Interpretation Comme nts LDH (test code = 9555430969) 149 U/L 120-246 Lab Interpretation (test cod e = 47863-2) Normal [facility] Ehkiicehfzbuf4651-96-75 10:19:56* Test Item Value Reference Range Interpretation Comme nts LDH (test code = 0256850957) 149 U/L 120-246 Lab Interpretation (test cod e = 62806-2) Normal [facility] and Screen - ONCE VVJW1411-64-52 09:49:13 * Test Item Value Reference Range Interpretation Comme nts ABO & RH (test code = 20) O Positive Performed at [facility] Laboratory [facility] Blood [address]Toll Free: [phone] No. [id number] IAT (test code = 1185) Negative Performed at [facility] Laboratory [facility] Blood [place] [address]Toll Free: [phone] No. [id number] [facility] and Screen - ONCE WYLG8244-85-12 09:49:13 * Test Item Value Reference Range Interpretation Comme nts ABO & RH (test code = 20) O Positive Performed at [place] [address]Toll Free: [phone] No. [id number] IAT (test code = 1185) Negative Performed at [facility] Blood [address]Toll Free: [phone] No. [id number] [facility] and Screen - ONCE LJUL3526-64-98 09:49:13 * Test Item Value Reference Range Interpretation Comme nts ABO & RH (test code = 20) O Positive Performed at [place] [address]Toll Free: [phone] No. [id number] IAT (test code = 1185) Negative Performed at [place] [address]Toll Free: [phone] No. [id number] [facility] and Screen - ONCE WUBV9338-28-23 09:49:13 * Test Item Value Reference Range Interpretation Comme nts ABO & RH (test code = 20) O Positive Performed at [place] [address]Toll Free: [phone] No. [id number] IAT (test code = 1185) Negative Performed at [address]Toll Free: [phone] No. [id number] [facility] and Screen - ONCE FNOX4634-99-50 09:49:13 * Test Item Value Reference Range Interpretation Comme nts ABO & RH (test code = 20) O Positive Performed at [facility] Blood [address] [place] [address]Awty Free: [phone] No. [id number] IAT (test code = 1185) Negative Performed at [facility] Laboratory Services [facility] Blood [address] [place] [address]Cpxx Free: [phone] No. [id number] [facility] SPECIFIC YOKEIML9938-53-58 21:13:00* Test Item Value Reference Range Interpretation Comme nts POCT PH U (test code = 3254) n/a 5-8 POCT U LEUK EST (test code = 3263) n/a Negative - Negative POCT U NIT (test code = 3262) n/a Negative - Negati ve POCT U PROT (test code = 3259) negative Negative - Negat brittany POCT U GLU (test code = 3256) negative Negative - Negati ve POCT U KETONE (test code = 3258) n/a Negative - Neg ative POCT U BLD (test code = 3257) n/a Negative - Negati ve [facility] W/O SPECIFIC HMDIULH1682-83-89 21:13:00* Test Item Value Reference Range Interpretation Comme nts POCT PH U (test code = 3254) n/a 5-8 POCT U LEUK EST (test code = 3263) n/a Negative - Negative POCT U NIT (test code = 3262) n/a Negative - Negati ve POCT U PROT (test code = 3259) negative Negative - Negat brittany POCT U GLU (test code = 3256) negative Negative - Negati ve POCT U KETONE (test code = 3258) n/a Negative - Neg ative POCT U BLD (test code = 3257) n/a Negative - Negati ve [facility] UR[facility]AL[facility] W/O SPECIFIC GGLEYCK1734-05-44 21:13:00* Test Item Value Reference Range Interpretation Comme nts POCT PH U (test code = 3254) n/a 5-8 POCT U LEUK EST (test code = 3263) n/a Negative - Negative POCT U NIT (test code = 3262) n/a Negative - Negati ve POCT U PROT (test code = 3259) negative Negative - Negat brittany POCT U GLU (test code = 3256) negative Negative - Negati ve POCT U KETONE (test code = 3258) n/a Negative - Neg ative POCT U BLD (test code = 3257) n/a Negative - Negati ve [facility] URINALYSIS W/O SPECIFIC CARWNXF4229-18-62 21:13:00* Test Item Value Reference Range Interpretation Comme nts POCT PH U (test code = 3254) n/a 5-8 POCT U LEUK EST (test code = 3263) n/a Negative - Negative POCT U NIT (test code = 3262) n/a Negative - Negati ve POCT U PROT (test code = 3259) negative Negative - Negat brittany POCT U GLU (test code = 3256) negative Negative - Negati ve POCT U KETONE (test code = 3258) n/a Negative - Neg ative POCT U BLD (test code = 3257) n/a Negative - Negati ve [facility] URINALYSIS W/O SPECIFIC PTVFTXX5515-15-22 20:51:00* Test Item Value Reference Range Interpretation Comme nts POCT PH U (test code = 3254) n/a 5-8 POCT U LEUK EST (test code = 3263) n/a Negative - Negative POCT U NIT (test code = 3262) n/a Negative - Negati ve POCT U PROT (test code = 3259) negative Negative - Negat brittany POCT U GLU (test code = 3256) negative Negative - Negati ve POCT U KETONE (test code = 3258) n/a Negative - Neg ative POCT U BLD (test code = 3257) n/a Negative - Negati ve [facility] URINALYSIS W/O SPECIFIC [id number] 21:43:00* Test Item Value Reference Range Interpretation Comme nts POCT PH U (test code = 3254) n/a 5-8 POCT U LEUK EST (test code = 3263) n/a Negative - Negative POCT U NIT (test code = 3262) n/a Negative - Negati ve POCT U PROT (test code = 3259) negative Negative - Negat brittany POCT U GLU (test code = 3256) negative Negative - Negati ve POCT U KETONE (test code = 3258) n/a Negative - Neg ative POCT U BLD (test code = 3257) n/a Negative - Negati ve [facility] URINALYSIS W/O SPECIFIC [id number] 21:33:00* Test Item Value Reference Range Interpretation Comme nts POCT PH U (test code = 3254) n/a 5-8 POCT U LEUK EST (test code = 3263) n/a Negative - Negative POCT U NIT (test code = 3262) n/a Negative - Negati ve POCT U PROT (test code = 3259) negative Negative - Negat brittany POCT U GLU (test code = 3256) negative Negative - Negati ve POCT U KETONE (test code = 3258) n/a Negative - Neg ative POCT U BLD (test code = 3257) n/a Negative - Negati ve [facility] URINALYSIS W/O SPECIFIC [id number] 20:15:00* Test Item Value Reference Range Interpretation Comme nts POCT PH U (test code = 3254) N/A 5-8 POCT U LEUK EST (test code = 3263) N/A Negative - Negative POCT U NIT (test code = 3262) N/A Negative - Negati ve POCT U PROT (test code = 3259) Negative Negative - Negat brittany POCT U GLU (test code = 3256) 1+ Negative - Negati ve POCT U KETONE (test code = 3258) N/A Negative - Neg ative POCT U BLD (test code = 3257) N/A Negative - Negati ve [facility] URINALYSIS W/O SPECIFIC [id number] 17:27:00* Test Item Value Reference Range Interpretation Comme nts POCT PH U (test code = 3254) n/a 5-8 POCT U LEUK EST (test code = 3263) n/a Negative - Negative POCT U NIT (test code = 3262) n/a Negative - Negati ve POCT U PROT (test code = 3259) negative Negative - Negat brittany POCT U GLU (test code = 3256) negative Negative - Negati ve POCT U KETONE (test code = 3258) n/a Negative - Neg ative POCT U BLD (test code = 3257) n/a Negative - Negati ve [facility]/O SPECIFIC [id number] 16:18:00* Test Item Value Reference Range Interpretation Comme nts POCT PH U (test code = 3254) n/a 5-8 POCT U LEUK EST (test code = 3263) n/a Negative - Negative POCT U NIT (test code = 3262) n/a Negative - Negati ve POCT U PROT (test code = 3259) negative Negative - Negat brittany POCT U GLU (test code = 3256) negative Negative - Negati ve POCT U KETONE (test code = 3258) n/a Negative - Neg ative POCT U BLD (test code = 3257) n/a Negative - Negati ve [facility] W/O SPECIFIC [id number] 16:18:00* Test Item Value Reference Range Interpretation Comme nts POCT PH U (test code = 3254) n/a 5-8 POCT U LEUK EST (test code = 3263) n/a Negative - Negative POCT U NIT (test code = 3262) n/a Negative - Negati ve POCT U PROT (test code = 3259) negative Negative - Negat brittany POCT U GLU (test code = 3256) negative Negative - Negati ve POCT U KETONE (test code = 3258) n/a Negative - Neg ative POCT U BLD (test code = 3257) n/a Negative - Negati ve [facility] 1 HOUR POST [id number] 17:35:55* Test Item Value Reference Range Interpretation Comme nts GLUC 1 HR (test code = 4488749870) 90 mg/dL 120-170 L Lab Interpretation (test cod e = 11407-5) Abnormal [facility] HOUR POST [id number] 17:35:55* Test Item Value Reference Range Interpretation Comme nts GLUC 1 HR (test code = 0708371434) 90 mg/dL 120-170 L Lab Interpretation (test cod e = 59221-6) Abnormal [facility] HOUR POST [id number] 17:35:55* Test Item Value Reference Range Interpretation Comme nts GLUC 1 HR (test code = 7666681221) 90 mg/dL 120-170 L Lab Interpretation (test cod e = 17190-1) Abnormal [facility], BLOOD [id number] 16:45:02 * Test Item Value Reference Range Interpretation Comme nts ABO & RH (test code = 20) O Positive Performed at [address] Free: [phone] No. [id number] IAT (test code = 1185) Negative Performed at [place] [address]Toll Free: [phone] No. [id number] [facility], BLOOD [id number] 16:45:02 * Test Item Value Reference Range Interpretation Comme nts ABO & RH (test code = 20) O Positive Performed at [place] [address]Toll Free: [phone] No. [id number] IAT (test code = 1185) Negative Performed at [place] [address]Toll Free: [phone] No. [id number] [facility], BLOOD [id number] 16:45:02 * Test Item Value Reference Range Interpretation Comme nts ABO & RH (test code = 20) O Positive Performed at [place] [address]Toll Free: [phone] No. [id number] IAT (test code = 1185) Negative Performed at [address], [place], [place] [address] Free: [phone] No. [id number] [facility] WITH [id number] 16:17:08* Test Item Value Reference Range Interpretation Comme nts WBC (test code = 6690-2) See_Comment [Automated messa ge] The system which generated this result transmitted reference range: 4.30 - 11.10 10*3/?L. The reference range was not used to interpret this result as normal/abnormal. RBC (test code = 789-8) See_Comment L [Automated messa ge] The system which generated this result transmitted reference range: 3.93 - 5.25 10*6/?L. The reference range was not used to interpret this result as normal/abnormal. HGB (test code = 718-7) 11.7 g/dL 11.6-15.0 HCT (test code = 4544-3) 35.6 % 35.7-45.2 L MCV (test code = 787-2) 93.2 fL 80.6-95.5 MCH (test code = 785-6) 30.6 pg 25.9-32.8 MCHC (test code = 786-4) 32.9 g/dL 31.6-35.1 RDW-SD (test code = 26119-7) 40.7 fL 39.0-49.9 RDW-CV (test code = 788-0) 11.9 % 12.0-15.5 L PLT (test code = 777-3) See_Comment [Automated messa ge] The system which generated this result transmitted reference range: 166 - 358 10*3/?L. The reference range was not used to interpret this result as normal/abnormal. MPV (test code = 61907-2) 11.3 fL 9.5-12.9 NRBC/100 WBC (test code = 2182427129) See_Comment [Automated me ssage] The system which generated this result transmitted reference range: 0.0 - 10.0 /100 WBCs. The reference range was not used to interpret this result as normal/abnormal. NRBC x10^3 (test code = 3379488049) See_Comment [Automated messa ge] The system which generated this result transmitted reference range: 10*3/?L. The reference range was not used to interpret this result as normal/abnormal. GRAN MAT (NEUT) % (test code = 770-8) 77.0 % IMM GRAN % (test code = 7420109988) 0.70 % LYMPH % (test code = 736-9) 13.1 % MONO % (test code = 5905-5) 8.2 % EOS % (test code = 713-8) 0.7 % BASO % (test code = 706-2) 0.3 % GRAN MAT x10^3(ANC) (test code = 2382842069) 7.55 10*3/uL 1.88-7.09 H IMM GRAN x10^3 (test code = 8500328796) 0.07 10*3/uL 0.00-0.06 H LYMPH x10^3 (test code = 731-0) 1.29 10*3/uL 1.32-3.29 L MONO x10^3 (test code = 742-7) 0.81 10*3/uL 0.33-0.92 EOS x10^3 (test code = 711-2) 0.07 10*3/uL 0.03-0.39 BASO x10^3 (test code = 704-7) 0.03 10*3/uL 0.01-0.07 Lab Interpretation (test code = 68130-9) Abnormal [facility] URINALYSIS W/O SPECIFIC [id number] 20:46:00* Test Item Value Reference Range Interpretation Comme nts POCT PH U (test code = 3254) N/A 5-8 POCT U LEUK EST (test code = 3263) N/A Negative - Negative POCT U NIT (test code = 3262) N/A Negative - Negati ve POCT U PROT (test code = 3259) NEGATIVE Negative - Negat brittany POCT U GLU (test code = 3256) POSITIVE Negative - Negati ve POCT U KETONE (test code = 3258) N/A Negative - Neg ative POCT U BLD (test code = 3257) N/A Negative - Negati ve [facility] URINALYSIS W/O SPECIFIC [id number] 16:14:00* Test Item Value Reference Range Interpretation Comme nts POCT PH U (test code = 3254) n/a 5-8 POCT U LEUK EST (test code = 3263) n/a Negative - Negative POCT U NIT (test code = 3262) n/a Negative - Negati ve POCT U PROT (test code = 3259) negative Negative - Negat brittany POCT U GLU (test code = 3256) negative Negative - Negati ve POCT U KETONE (test code = 3258) n/a Negative - Neg ative POCT U BLD (test code = 3257) n/a Negative - Negati ve [facility] W/O SPECIFIC [id number] 16:13:00* Test Item Value Reference Range Interpretation Comme nts POCT PH U (test code = 3254) N/A 5-8 POCT U LEUK EST (test code = 3263) N/A Negative - Negative POCT U NIT (test code = 3262) N/A Negative - Negati ve POCT U PROT (test code = 3259) Negative Negative - Negat brittany POCT U GLU (test code = 3256) Negative Negative - Negati ve POCT U KETONE (test code = 3258) N/A Negative - Neg ative POCT U BLD (test code = 3257) N/A Negative - Negati ve [facility] UR[facility] W/O SPECIFIC [id number] 16:40:00* Test Item Value Reference Range Interpretation Comme nts POCT PH U (test code = 3254) n/a 5-8 POCT U LEUK EST (test code = 3263) n/a Negative - Negative POCT U NIT (test code = 3262) n/a Negative - Negati ve POCT U PROT (test code = 3259) negative Negative - Negat brittany POCT U GLU (test code = 3256) negative Negative - Negati ve POCT U KETONE (test code = 3258) n/a Negative - Neg ative POCT U BLD (test code = 3257) n/a Negative - Negati ve [facility] and Screen - ONCE [id number] 06:05:54* Test Item Value Reference Range Interpretation Comme nts ABO & RH (test code = 20) O Positive Performed at [facility] Laboratory [facility] Blood [address] [place] [address] Free: [phone] No. [id number] IAT (test code = 1185) Negative Performed at [facility] Blood [address]Toll Free: [phone] No. [id number] [facility] UR[facility]YS[facility] W/O SPECIFIC [id number] 20:20:00* Test Item Value Reference Range Interpretation Comme nts POCT PH U (test code = 3254) N/A 5-8 POCT U LEUK EST (test code = 3263) N/A Negative - Negative POCT U NIT (test code = 3262) N/A Negative - Negati ve POCT U PROT (test code = 3259) Negative Negative - Negat brittany POCT U GLU (test code = 3256) Negative Negative - Negati ve POCT U KETONE (test code = 3258) N/A Negative - Neg ative POCT U BLD (test code = 3257) N/A Negative - Negati ve [facility]onavirus 2019 nCoV [id number] 00:49:00* Test Item Value Reference Range Interpretation Comme nts Coronavirus 2019 nCoV Bedside (test code = [id number]) Negative Negative Negative results should be treated as presumptive and, ifinconsistent with clinical signs and symptoms or necessaryfor patient management, should be tested with differentauthorized or cleared molecular tests. Negative results donot preclude SARS-CoV-2 infection and should not be used asthe sole basis for patient management decisions. Negativeresults should be considered in the context of a patient'srecent exposures, history and presence of clinical signs andsymptoms consistent with COVID-19. Specimen Source: Nasopharyngeal (DECK MOLDER) Swab This test has been authorized by FDA under an EUA for use byauthorized laboratories. This test has been authorized only for the detection ofnucleic acid (PCR) from SARS-CoV-2, not from any other viruses or pathogens. This test is only authorized for the duration of thedeclaration that circumstances exist justifying theauthorization of emergency use of in vitro diagnostic testsfor the detection and/or diagnosis of COVID-19 under Nccggmm040(b)(1) of the Act, 21 U.S.C 360bbb-3(b)(1), unless theauthorization is terminated or revoked sooner. - XR CHEST 1 [id number] 00:35:00 [facility] : 2000 Sex: FPatient Name: KAYA BUSTILLOS Unit No: [id number] EXAMS: CPT: [id number] XR CHEST 1 V 25980 AP CHEST 1 VIEW COMPARISON: None HISTORY: cough FINDINGS: Cardiomediastinal silhouette is normal. No focal lung consolidation. There is no pleural effusion. There is no pneumothorax. No acute bony abnormality. IMPRESSION: No acute cardiopulmonary findings. at 0035 Reported and signed by: Federico Jones MD CC: Cheryl ROGERS Technologist: Eduardo De Leon Time: DAP (Gy m2): Air Kerma (mGy): Trscr Dt/Tm: 12/05/2021 (003) by:[email or web address] Orig Print D/T: S: 12/05/2021 (0038) BATCH NO: N/A Name: KAYA BUSTILLOS [facility] Phys: Cheryl Lopes [address] [place] : 2000 Age: 21 Sex: [place] [address] Loc: N.ERS Exam Date: 12/04/2021 Status: PRE ER PH: FAX: PAGE 1 Signed Reportpregnancy test, [id number] 14:31:59* Test Item Value Reference Range Interpretation Comme nts HCG (test code = HCG) negative [facility] macro (dipstick) panel - [id number] 14:30:00* Test Item Value Reference Range Interpretation Comme nts Color Color (test code = Col or Color) yellow Color Appearance (test code = Color Appearance) hazy Color Glucose (test code = C olor Glucose) negative Color Bilirubin (test code = Color Bilirubin) negative Color Ketones (test code = C olor Ketones) negative Color Specific [place] (test code = Color Specific [place]) 1.025 Color Blood (test code = Col or Blood) small Color PH (test code = Color PH) 7.0 Color Protein (test code = C olor Protein) negative Color Urobilinogen (test cod e = Color Urobilinogen) 0.2 Color Nitrites (test code = Color Nitrites) negative Color Leukocytes (test code = Color Leukocytes) large [facility] PracticeURINE [id number] 18:53:00* Test Item Value Reference Range Interpretation Comme nts U Preg (test code = U Preg) Negative (09/05/21 1:53 PM) [facility]annURINALYSIS [id number] 07:55:00* Test Item Value Reference Range Interpretation Comme nts UA COLOR (test code = COLU) DARK YELLOW YELLOW A UA APPEARANCE (test code = APPU) HAZY CLEAR A UA GLUCOSE DIPSTICK (test code = DGLUU) norm mg/dL NEGATIVE UA BILIRUBIN DIPSTICK (test code = BILU) NEGATIVE mg/dL NEGATIVE UA KETONE DIPSTICK (test code = KETU) neg mg/dL NEGATIVE UA SPECIFIC GRAVITY (test code = SGU) 1.010 1.001-1.035 UA BLOOD DIPSTICK (test code = SILVIO) 10 (Trace) Anupam/uL NEGATIVE A UA PH DIPSTICK (test code = ALINE) 7.0 5.0-8.0 UA PROTEIN DIPSTICK (test code = PROU) 30 (1+) mg/dL Neg-15 A UA UROBILINIOGEN DIPSTICK (test code = URO) 1 mg/dL 0.0-0.2 A UA NITRITE DIPSTICK (test code = SUZY) NEGATIVE NEGATIVE UA LEUKOCYTE ESTERASE DIPSTICK (test code = LEUU) 100 [place]/uL (1+) uL NEGATIVE A UA WBC (test code = WBCU) 30-40 per HPF 0-5 A UA RBC (test code = RBCU) 1-3 per HPF 0-5 UA EPITHELIAL CELLS (test code = EPIU) Moderate (5-10/hpf) per HPF Few UA BACTERIA (test code = BACU) MODERATE per HPF NONE A Urine Source? Clean CatchUR HCG [id number] 07:55:00* Test Item Value Reference Range Interpretation Comme nts UR HCG QUAL (test code = HCGQLU) NEGATIVE This HCGQL test is NOT applicable for MALE patients.Check with nurse about probable order error.If Tumor Marker Test needed, nurse should order test "HCGTU"(Test #[id number]) Urine Source? Clean CatchPOCT RAPID STREP SCREEN FOR GROUP [id number] 23:29:00 * Test Item Value Reference Range Interpretation Comme nts POCT GP A STREP (test code = 48086-3) Negative Negative - Negative Lab Interpretation (test cod e = 34932-3) Normal [facility] Notes Date/Time Note Provider Source 2024-06-09 14:59:56 Addended by: SANTOS MCCLURE on: 06/09/2024 02:59 PM Modules accepted: Orders [facility] 2024-06-09 14:59:33 Prescription sent to pharmacy. [facility] 2024-06-09 14:45:13 Tried calling patient, mailbox is full. If she calls back, the medication will be sent in. [facility] 2024-06-09 14:36:25 Test hasn't been reviewed by ordering provider. Per Santos, she will send in the medication. [facility] 2024-06-09 10:44:11 Kaya Bustillos is a 23 year old female Patient called back stating her pharmacy have not received the medication from 06/07. Please contact [phone] [facility]/pharmacy #[id number] [facility] [address] AT [facility] SSA Gramajo [facility] 2024-05-14 17:33:03 Notified pt about pharmacy change. Adriane Salomon MA 05/14/2024 5:33 PM SSA Salomon MA [facility] 2024-05-14 17:32:25 Medication sent and notified pt. Adriane Salomon MA 05/14/2024 5:32 PM [facility] 2024-05-14 16:04:21 Kaya Bustillos is a 23 year old female Pt called requesting for medication to be sent to the [facility] in [place]. Please advise. SSA Bess Pattie Bennett [facility] 2024-05-14 15:43:37 Sent Ampicillin to treat UTI to the pharmacy. [facility] 2024-05-13 16:14:37 Reviewed results, mychart message sent and medication sent to pharmacy on file. [facility] 2024-05-12 16:30:00 Images from the original note were not included. Venipuncture collection performed by clean technique on the right anticubitus. Total of 1 attempts were made. Slight pressure and a bandage/dressing were applied to the site(s). The patient experienced no complications. The following specimens were processed according to instructions and sent to [facility] laboratories per lab order on TODAY: LT BLUE SST 3 RED LAV PPT DK GREEN (LiHep) DK GREEN (SodH) MITCHELL DK BLUE (K2) DK BLUE (S) ACD Blood Culture NIPT/NTD [facility] 2023-11-28 11:13:26 Pt given printed and verbal discharge instructions regarding sprains, encouraged hydration. 1 Prescription provided. Discussed ibuprofen and to take with food to avoid GI distress. Pt verbalized understanding of instructions, pt awake alert oriented, resp reg unlabored, skin w/d, color appropriate for race, moves all ext well,pt encouraged to follow up with pcp. Advised to seek medical attention for new/prolonged/worsening of symptoms, Symptoms improved. No adverse reaction to meds given in ER noted upon discharge. Awake, alert oriented, resp reg unlabored, skin w/d, pt leaving amb with steady gait with crutches, in no apparent distress. Francine Smalls RN [facility] 2023-11-28 10:10:07 CC: patient presents to the ER with complaints of left ankle pain that occurred after falling down two steps last night and rolling the ankle. Denies taking any medications [employer]. PMHx: see history Awake, alert, oriented, resp reg unlabored, skin warm and dry, color appropriate for race, moves all ext without difficulty, using wheelchair. Appears in no distress. April Mcmillan RN [facility] 2023-08-22 06:52:35 Patient presents with ab abscess to the left groin. Seen at urgent care earlier this week and prescribed Cephalexin. Has not improved. Reports a headache and fever starting last night. Taking Ibuprofen and Tylenol for fever with last dose at 0300. 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 [facility] 2023-07-28 21:40:06 Pt given printed and verbal discharge instructions regarding viral URI Prescriptions provided Discussed ibuprofen and to take with food to avoid GI distress. Pt verbalized understanding of instructions, pt awake alert oriented, resp reg unlabored, skin w/d, color appropriate for race, moves all ext well,pt encouraged to follow up with pcp Advised to seek medical attention for new/prolonged/worsening of symptoms, No adverse reaction to meds given in ER noted upon discharge PIV d'cd, dressing to site, catheter in tact. Awake, alert oriented, resp reg unlabored, skin w/d, pt leaving amb with steady gait, in no apparent distress ING TEACHER Dione Hinton RN [facility] 2023-07-28 16:37:23 Pt presents with cold symptoms. Pts child is covid +. Pt reports congestion, sore throat, cough and fever. No meds taken [employer] SSA Bey RN [facility] 2023-06-23 16:13:37 Pt given discharge instructions on urinary tract infection. Given prescription X 1 for Augmentin. Advised to follow up with pcp. Pt left ER ambulatory, no signs of distress. ING TEACHER Kaya Mclaughlin RN [facility] 2023-06-23 14:39:50 CC: patient presents to the ER with complaints of blood in her urine that began last night. Patient states she had UTI like symptoms that began two weeks ago, she took AZO's without relief. States she was recently treated for a STD. PMHx: see history Awake, alert, oriented, resp reg unlabored, skin warm and dry, color appropriate for race, moves all ext without difficulty, amb without assistance. Appears in no distress. ING TEACHER April Mcmillan RN [facility] 2023-06-23 14:32:00 [facility] Emergency Department Note Patient Name: Kaya Bustillos Date of : 2000 22 year old female Treatment [facility] Primary Care Physician: Verónica Fajardo Patient Escorted by: Self [9] Mode of Arrival: Personal means [1] EMS Treatment Prior to ED Arrival: [employer] treatment: None Travel and Exposure Screening: Symptoms Does patient have any of these symptoms?: (not recorded) Exposure Screening Has patient had contact with someone with a communicable disease in the last month?: (not recorded) Diseases exposed to:: (not recorded) Is Patient ?: (not recorded) Exposure Date: (not recorded) Chief Complaint: Chief Complaint Patient presents with Blood In Urine History of Present Illness: HPI 22yo F presents today with hematuria and has been taking Azos for dysuria. However it hasn't helped this time and seems to be getting worse. No allergies. Was recently treated for STI. Past Medical History/Immunizations: Past Medical History: Diagnosis Date Allergic rhinitis Anemia STD (sexually transmitted disease) Tetanus received in last 5 years: Unknown Allergies: Allergies Allergen Reactions Biaxin [Clarithromycin] Diarrhea Informed by parent Clindamycin Diarrhea Informed by parent Sulfamethoxazole Diarrhea BACTRIM, informed by parent Past Social History: Tobacco Use Never smoked or used smokeless tobacco. Passive Exposure: Never Vaping Use Never used Alcohol Use Not Currently. Drug Use Yes; Marijuana. Sexual Activity Sexually active; Partners: Male. Past Surgical History: Past Surgical History: Procedure Laterality Date SECTION N/A 08/28/2022 Surgeon: Prema Coy MD; Location: [facility] LABOR AND DELIVERY OR LOCATION Review of Systems: Review of Systems Constitutional: Negative for activity change, diaphoresis, fatigue, fever and weight gain. HENT: Negative for congestion, ear pain, rhinorrhea, sore throat, tinnitus and trouble swallowing. Eyes: Negative for discharge and visual disturbance. Respiratory: Negative for cough and chest tightness. Breasts: Negative for pain. Cardiovascular: Negative for chest pain and palpitations. Gastrointestinal: Negative for abdominal pain, nausea and vomiting. Genitourinary: Positive for dysuria and hematuria. Negative for difficulty urinating. Musculoskeletal: Negative for joint swelling. Skin: Negative for rash and wound. Neurological: Negative for dizziness and headaches. Psychiatric/Behavioral: Negative for agitation and confusion. The patient is not nervous/anxious. Hematological: Does not bruise/bleed easily. Endocrine: Negative for weight gain. Physical Exam: ED Triage Vitals [06/23/23 1441] Weight 77.1 kg (170 lb) Actual or estimated Estimated by patient/family report Height 1.626 m (5' 4") BP 125/77 Pulse 79 Resp 16 Temp 36.6 ?C (97.9 ?F) Temp source Oral SpO2 99 % Measured on Room air Physical Exam Vitals reviewed. Constitutional: Appearance: She is well-developed. Comments: Appears uncomfortable sitting HENT: Head: Normocephalic and atraumatic. Eyes: Conjunctiva/sclera: Conjunctivae normal. Cardiovascular: Rate and Rhythm: Normal rate and regular rhythm. Heart sounds: Normal heart sounds. No murmur heard. Pulmonary: Effort: Pulmonary effort is normal. Breath sounds: Normal breath sounds. No stridor. Abdominal: General: Bowel sounds are normal. Palpations: Abdomen is soft. Tenderness: There is no abdominal tenderness. Musculoskeletal: General: Normal range of motion. Cervical back: Neck supple. Skin: General: Skin is warm and dry. Capillary Refill: Capillary refill takes less than 2 seconds. Neurological: Mental Status: She is alert and oriented to person, place, and time. Cranial Nerves: No cranial nerve deficit. Psychiatric: Behavior: Behavior normal. Radiology: No orders to display Lab Results: Lab Results URINALYSIS - Abnormal Result Value Ref Range APPEARANCE Cloudy (*) Clear COLOR Romy (*) Yellow PH 5.0 4.8 - 8.0 SP GRAVITY 1.026 1.003 - 1.030 GLU U QUAL Normal Normal BLOOD Negative Negative KETONES Negative Negative PROTEIN 30 mg/dL (*) Negative UROBILIN 2.0 mg/dL (*) Normal BILIRUBIN Negative Negative NITRITE Negative Negative LEUK MARNI 500/uL (*) Negative RBC/HPF 29 (*) 0 - 3 HPF WBC/HPF >182 (*) 0 - 5 HPF BACTERIA Few (*) Negative MUCOUS Moderate (*) Negative LPF SQ EPITH 10 HPF WBC CLUMPS 6 (*) <=1 HPF POCT TEST - Normal POCT PREG Negative On board controls acceptable with C Line Yes POCT PREG LOT # [id number] POCT PREG TEST DATE 09/25/2024 URINE CULTURE GC & CHLAMYDIA AMPLIFIED ASSAY EKG: If EKG completed, see Procedure Note. Orders and Treatments: Orders Placed This Encounter Procedures Urinalysis POCT Test Urine Culture Gc & Chlamydia Amplified Assay Orders Placed This Encounter Medications ketorolac (TORADOL) tablet 10 mg amoxicillin-clavulanate (AUGMENTIN) 875-125 mg per tablet 1 tablet amoxicillin-clavulanate 875-125 mg per tablet First Provider Eval: ED Events Date/Time Event User Comments 06/23/23 1456 Medical Screening Begins NETTA VELAZCO MD -- 06/23/23 1456 First Provider Evaluation NETTA VELAZCO MD -- ED COURSE Diagnosis/Impression as of 06/23/23 1604 Hematuria, unspecified type UTI (urinary tract infection) due to Enterococcus Procedures: Procedures MDM: Medical Decision Making UA shows severe infection Urine culture and awais/chly sent Augmentin dose given in ER Toradol dose given Called in script. Discharged with education to allow 24 hours to notice difference, if not return soon. Problems Addressed: Hematuria, unspecified type: acute illness or injury with systemic symptoms UTI (urinary tract infection) due to Enterococcus: acute illness or injury with systemic symptoms Amount and/or Complexity of Data Reviewed Labs: ordered. Risk Prescription drug management. Flowsheet Documentation: Scoring Tools: No data recorded Disposition/Condition: ED Disposition ED Disposition Disch - Home Condition Stable Comment -- Discharge Medications: Patient's Medications START taking these medications AMOXICILLIN-CLAVULANATE 875-125 MG PER TABLET Take 1 tablet by mouth every 12 (twelve) hours for 10 days. CONTINUE taking these medications which have NOT CHANGED IBUPROFEN 600 MG TABLET Take 1 tablet by mouth every 6 (six) hours as needed for Pain (scale 4-6) for up to 30 doses. ONDANSETRON 4 MG DISINTEGRATING TABLET Take 1 tablet by mouth every 8 (eight) hours as needed for Nausea and Vomiting (N/V). ONDANSETRON 4 MG TABLET Take 1 tablet by mouth every 8 (eight) hours as needed for Nausea and Vomiting (N/V) for up to 20 doses. OSELTAMIVIR (TAMIFLU) 75 MG CAPSULE Take 1 capsule by mouth in the morning and 1 capsule in the evening. VIT/IRON FUM/FOLIC AC ( 1 + 1 ORAL) Take by mouth. TRIAMCINOLONE ACETONIDE 0.1 % CREAM Apply to area(s) 2 (two) times daily. START taking Modified Medications as Prescribed No medications on file STOP taking these medications METRONIDAZOLE (FLAGYL) 500 MG TABLET Take 1 tablet by mouth every 12 (twelve) hours. Follow-up: Electronically signed by: Netta Velazco DO 06/23/23 1606 [facility] 2023-01-29 16:31:40 Formatting of this n ote might be different from the original. Letter sent to Rivet Gamest. Pt notified. Krystal Boothe RN [facility] 2023-01-29 13:28:55 Formatting of this n ote might be different from the original. Patient calling saying she is needing the note she was given today to return to work is incorrect. It shows a return to work on the . It needs to say today. She's needing it emailed to her at [email or web address]. She's needing it as soon as possible for work this afternoon. Ramila Munroe [facility] 2023-01-08 13:54:07 Message from [employer] : Refills have been requested for the following medications: valACYclovir (VALTREX) 500 mg tablet [Phyllis Ramos] Preferred pharmacy: [facility] [address] [place] [address] Delivery method: Pickup [facility] 2021-12-05 00:33:00 [facility] ([facility]) EMERGENCY PROVIDER REPORT REPORT#:[id number] REPORT STATUS: Signed DATE:12/05/21 TIME: 32 PATIENT: KAYA BUSTILLOS UNIT #: [id number]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
[2025-04-06] MEDS ORDERED: NA CHLORIDE 0.9% 1,000 ML ONE (16:58)
[2025-04-06] MEDS ORDERED: ONDANSETRON 4 MG/2 ML VIAL ONE (16:58)
[2025-04-06 17:19] LABS: Absolute Lymphocytes (CBC) 1.9 K/uL (0.7-4.9); Hematocrit 41.8 % (36.0-45.0); Hemoglobin 14.0 g/dL (12.0-15.0); MCH 29.6 pg (27.0-35.0); MCHC 33.4 g/dL (32.0-36.0); MCV 88.6 fL (80-100); MPV 8.4 fL (7.6-11.3); Nucleated RBC Absolute Count 0.0 (0-0); Nucleated Red Blood Cells % 0.0 % (0-0); RBC Red Blood Cell Count 4.72 M/uL (3.86-4.86); White Blood Count 10.30 thou/uL (4.3-10.9)
[2025-04-06 17:36] LABS: ALT/SGPT 19 U/L (13-56); AST/SGOT 13 U/L (15-37); Albumin 3.9 g/dL (3.4-5.0); Albumin/Globulin Ratio 1.1 (1.1-1.8); Alkaline Phosphatase 66 U/L (45-117); Anion Gap 8.8 mEq/L (5.0-15.0); BUN Blood Urea Nitrogen 8 mg/dL (7-18); Globulin 3.4 g/dL (2.3-3.5); Glucose Level 89 mg/dL (74-106); HCG, Quantitative < 1 mIU/mL (1-3); Potassium 3.8 mEq/L (3.5-5.1)
--- NOTE | 2025-04-06 17:54 | ER ---
Nurse's Notes [facility] Name: Jovita Bustillos Age: 24 yrs Sex: Female : 2000 Arrival Date: 04/06/2025 Time: 16:30 Bed 17 Private MD: Diagnosis: Nausea with vomiting, unspecified Presentation: 04/06 16:44 Chief complaint: Patient states: nausea/vomiting and cramping to lower stomach x5 days. dd2 pt denies vaginal bleeding, diarrhea and constipation. Coronavirus screen: At this time, the client does not indicate any symptoms associated with coronavirus-19. Ebola Screen: No symptoms or risks identified at this time. Initial Sepsis Screen: Does the patient meet any 2 criteria? No. Patient's initial sepsis screen is negative. Does the patient have a suspected source of infection? No. Patient's initial sepsis screen is negative. Risk Assessment: Do you want to hurt yourself or someone else? Patient reports no desire to harm self or others. Onset of symptoms was April 01, 2025. 16:44 Method Of Arrival: Ambulatory dd2 16:44 Acuity: AQUILINO 3 dd2 Triage Assessment: 16:46 General: Appears in no apparent distress. uncomfortable, Behavior is calm, cooperative, dd2 appropriate for age. Pain: Complains of pain in right lower quadrant and left lower quadrant Pain currently is 0 out of 10 on a pain scale. at worst was 6 out of 10 on a pain scale. GI: Reports lower abdominal pain, cramping, intolerance of fluids, intolerance of food, nausea, vomiting. 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 Patient uses street drugs, marijuana. Screenin:30 [facility] ED Fall Risk Assessment (Adult) History of falling in the last 3 months, rg5 including since admission. Assessment: 16:50 Reassessment: Patient and/or family updated on plan of care and expected duration. Pain ll1 level reassessed. 17:30 Reassessment: No changes from previously documented assessment. Patient and/or family rg5 updated on plan of care and expected duration. Pain level reassessed. Patient is alert, oriented x 3, equal unlabored respirations, skin warm/dry/pink. Vital Signs: 16:44 BP 127 / 84; Pulse 86; Resp 16; Temp 98.4; Pulse Ox 98% on R/A; Weight 90.72 kg; Height dd2 5 ft. 4 in. ; Pain 0/10; 17:20 BP 119 / 70; Pulse 76; Resp 18; Pulse Ox 98% ; rg5 16:44 Body Mass Index 34.33 (90.72 kg, 162.56 cm) dd2 16:44 Pain Scale: Adult dd2 ED Course: 16:33 Patient arrived in ED. im 16:33 Winifred Mcelroy [facility]-C [facility]. kb 16:33 Rodrigo Saenz MD is Attending Physician. kb 16:46 Triage completed. dd2 16:46 Arm band placed on right wrist. dd2 16:50 Patient placed in an exam room, on a stretcher. ll1 16:58 Jc Segovia, RN is Primary Nurse. bp 17:18 Initial lab(s) drawn, by me, sent to lab. Inserted saline lock: 20 gauge in right bp antecubital area, using aseptic technique. Blood collected. Flushed with 10 mL NS. 17:30 Patient has correct armband on for positive identification. rg5 18:01 IV discontinued, bleeding controlled, No redness/swelling at site. Pressure dressing rg5 applied. Administered Medications: 17:20 Drug: Ondansetron IVP 4 mg IVP once; over 2 minutes Route: IVP; Site: right antecubital;rg5 17:58 Follow up: Response: No adverse reaction rg5 17:20 Drug: NS 0.9% IV 1000 ml IV at 1 bolus Per protocol; to be given as a bolus over 60 rg5 minutes Route: IV; Rate: 1 bolus; Site: right antecubital; 17:58 Follow up: IV Status: Completed infusion; IV Intake: 1000ml rg5 Medication: 17:30 VIS not applicable for this client. rg5 Intake: 17:58 IV: 1000ml; Total: 1000ml. rg5 Outcome: 17:53 Discharge ordered by . kb 18:01 Discharged to home ambulatory, rg5 18:01 Condition: stable 18:01 Discharge instructions given to patient, 18:01 Patient left the ED. rg5 Signatures: Winifred Mcelroy, АНДРЕЙ PELAYO-Jc Reyez, RN RN bp Carson Paige RN RN ll1 Carol Johnston Rommel, RN RN rg5 ALESHA REID RN RN dd2 Corrections: (The following items were deleted from the chart) 16:47 16:46 PMHx: None; dd2 dd2 16:47 16:46 PSHx: None; dd2 dd2
--- NOTE | 2025-04-06 17:54 | EDPHYS ---
Physician Documentation [facility] Name: Jovita Bustillos Age: 24 yrs Sex: Female : 2000 Arrival Date: 04/06/2025 Time: 16:30 Bed 17 Private MD: ED Physician Rodrigo Saenz HPI: 04/06 18:05 This 24 yrs old Female presents to ER via Ambulatory with complaints of Abdominal Pain, kb Vomiting. 18:05 Patient is a 24-year-old female who presents for nausea and vomiting with mild kb abdominal cramping for 5 days. Denies fever, diarrhea. States these are the similar symptoms that she had when she was before so she came in to get checked for . States she did a UPT that was negative today. LMP 02/21/2025. 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 Patient uses street drugs, marijuana. ROS: 18:06 Constitutional: As per HPI kb Exam: 18:06 Constitutional: This is a well developed, well nourished patient who is awake, alert, kb and in no acute distress. Head/Face: Normocephalic, atraumatic. ENT: Moist Mucous membranes Cardiovascular: Regular rate Respiratory: Respirations even and unlabored. No increased work of breathing. Talking in full sentences Abdomen/GI: Soft, non-tender. No distention Skin: Warm, dry with normal turgor. Normal color. MS/ Extremity: Pulses equal, no cyanosis. Neurovascular intact. Full, normal range of motion. Neuro: Awake and alert, GCS 15, oriented to person, place, time, and situation. Vital Signs: 16:44 BP 127 / 84; Pulse 86; Resp 16; Temp 98.4; Pulse Ox 98% on R/A; Weight 90.72 kg; Height dd2 5 ft. 4 in. ; Pain 0/10; 17:20 BP 119 / 70; Pulse 76; Resp 18; Pulse Ox 98% ; rg5 16:44 Body Mass Index 34.33 (90.72 kg, 162.56 cm) dd2 16:44 Pain Scale: Adult dd2 MDM: 16:33 Medical Screening Exam initiated kb 18:06 Differential diagnosis: Nonspecific abd pain, viral gastroenteritis, . Data kb reviewed: vital signs, nurses notes. Test considered but Not performed: Ultrasound Ultrasound considered but negative. CT: CT considered but patient is afebrile, nontoxic in appearance, no abdominal tenderness on exam.. Counseling: I had a detailed discussion with the patient and/or guardian regarding the historical points, exam findings, and any diagnostic results supporting the discharge/admit diagnosis, lab results, the need for outpatient follow up, a family practitioner, to return to the emergency department if symptoms worsen or persist or if there are any questions or concerns that arise at home. 04/06 16:45 Order name: CBC with Diff; Complete Time: 17:21 kb 04/06 16:45 Order name: CMP; Complete Time: 17:37 kb 04/06 16:45 Order name: HCG-Quantitative; Complete Time: 17:37 kb 04/06 16:45 Order name: IV Saline Lock; Complete Time: 17:18 kb 04/06 16:45 Order name: Labs collected and sent; Complete Time: 17:18 kb Administered Medications: 17:20 Drug: Ondansetron IVP 4 mg IVP once; over 2 minutes Route: IVP; Site: right antecubital;rg5 17:58 Follow up: Response: No adverse reaction rg5 17:20 Drug: NS 0.9% IV 1000 ml IV at 1 bolus Per protocol; to be given as a bolus over 60 rg5 minutes Route: IV; Rate: 1 bolus; Site: right antecubital; 17:58 Follow up: IV Status: Completed infusion; IV Intake: 1000ml rg5 Disposition: 04/07 07:35 Co-signature as Attending Physician, Rodrigo Saenz MD I agree with the assessment and ml plan of care. Disposition Summary: 04/06/25 17:53 Discharge Ordered Notes: Location: Home Condition: Stable kb Diagnosis - Nausea with vomiting, unspecified kb Followup: kb - With: Emergency Department - When: As needed - Reason: Worsening of condition Followup: kb - With: Private Physician - When: 2 - 3 days - Reason: Recheck today's complaints, Continuance of care, Re-evaluation by your physician Discharge Instructions: - Discharge Summary Sheet kb - Nausea and Vomiting, Adult, [id number] kb Forms: - Medication Reconciliation Form kb - Antibiotic Education kb - Prescription Opioid Use kb - Patient Portal Instructions kb - Leadership Thank You Letter kb Prescriptions: - ondansetron 4 mg Oral Tablet,disintegrating - take 1 tablet ORAL route every 6 hours as needed for nausea and vomiting; 12 kb tablet; Refills: 0, Product Selection Permitted Signatures: Dispatcher [employer] EDWinifred Licea, MECHANICAL ENGINEERING LECTURER-C MECHANICAL ENGINEERING LECTURER-Rodrigo Garcia MD MD cha Gallardo, Rommel, RN RN rg5 ALESHA REID RN RN dd2 Corrections: (The following items were deleted from the chart) 04/06 16:47 16:46 PMHx: None; dd2 dd2 16:47 16:46 PSHx: None; dd2 dd2
[2025-04-06 18:33] VITALS: TEMP 98.4; O2SAT 98
[2025-04-06 18:34] VITALS: BP 119/70
== END 2025-04-06 18:01 | disposition home or self-care (01) ==
LOC: ER 16:30
DX: R11.2 Nausea with vomiting, unspecified (principal)
CPT/HCPCS: 96361; 85025; 36415; 84702; 80053; 96374; 99284; J2405; J7030